=== PATIENT | male | born 1940 | race Caucasian/White ===

== ENCOUNTER → 2023-12-27 13:16 | Outpatient (REF) | payer MEDICARE, SELFPAY ==
[2023-12-27 14:03] LABS: % Basophils 0.6 % (0-2); % Eosinophils 1.7 % (0-6); % Immature Granulocytes 0.2 % (0-0.5); % Lymphocytes 23.9 % (20.5-51.1); % Monocytes 8.5 % (1.7-9.3); % Neutrophils 65.1 % (42.2-75.2); Absolute Eosinophils 0.1 10^3/uL (0-0.7); Absolute Lymphocytes 1.5 10^3/uL (1.2-3.4); Absolute Monocytes 0.5 10^3/uL (0.1-0.6); Absolute Neutrophils 4.1 10^3/uL (1.4-6.5); Hematocrit 38.7 % (39.0-52.0); Hemoglobin 12.6 g/dL (13.0-18.0); Mean Corp Hgb Conc. 32.6 g/dL (33.0-37.0); Mean Corpuscular Hgb 30.5 pg (27.0-31.0); Mean Corpuscular Volume 93.7 fL (80.0-94.0); Mean Platelet Volume 10.2 fL (7.4-10.4); Nucleated Red Blood Cells % 0 % (-); Platelet Count 176 10^3/uL (130-400); Red Blood Cell Count 4.13 10^6/uL (4.70-6.10); Red Cell Dist. Width 13.3 % (11.5-14.5); White Blood Cell Count 6.3 10^3/uL (4.8-10.8)
[2023-12-27 14:32] LABS: ALT (SGPT) 20 U/L (0-50); AST (SGOT) 27 U/L (17-59); Albumin 3.7 g/dl (3.5-5.0); Alkaline Phosphatase 75 U/L (38-126); Blood Urea Nitrogen 29 mg/dl (9-20); Calcium 9.4 mg/dl (8.4-10.2); Carbon Dioxide 27 mmol/L (22-30); Chloride 107 mmol/L (98-107); Glucose 76 mg/dl (70-99); Potassium 4.6 mmol/L (3.5-5.1); Sodium 140 mmol/L (135-145); Total Bilirubin 0.6 mg/dl (0.2-1.3); Total Protein 6.4 g/dl (6.3-8.2); eGFR 53.84
[2023-12-27 14:48] LABS: Vitamin D, 25-OH*** 37.9 ng/mL (30-80)
[2023-12-27 14:59] LABS: Erythrocyte Sed Rate 19 mm/hour (0-20)
== END ==
LOC: REG 13:16
PROVIDERS: ATTENDING PHYSICIAN Internal Medicine Rheumatology; FAMILY PHYSICIAN Internal Medicine
DX: E55.9 Vitamin D deficiency, unspecified (principal); M06.09 Rheumatoid arthritis without rheumatoid factor, multiple sites; Z79.899 Other long term (current) drug therapy
CPT/HCPCS: 36415; 80053; 82306; 85025; 85652; 86140

== ENCOUNTER → 2024-05-07 10:45 | Outpatient (REF) | payer MEDICARE, SELFPAY | LOC: RAD 10:45 | PROVIDERS: ATTENDING PHYSICIAN Surgery Vascular Surgery; FAMILY PHYSICIAN Nurse Practitioner Family | DX: R22.42 Localized swelling, mass and lump, left lower limb (principal) | CPT/HCPCS: 93970 ==

== ENCOUNTER → 2024-05-23 10:57 | Outpatient (REF) | payer MEDICARE, SELFPAY ==
[2024-05-23 12:19] LABS: % Basophils 0.8 % (0-2); % Eosinophils 1.7 % (0-6); % Immature Granulocytes 0.2 % (0-0.5); % Lymphocytes 23.7 % (20.5-51.1); % Monocytes 8.9 % (1.7-9.3); % Neutrophils 64.7 % (42.2-75.2); Absolute Eosinophils 0.1 10^3/uL (0-0.7); Absolute Lymphocytes 1.3 10^3/uL (1.2-3.4); Absolute Monocytes 0.5 10^3/uL (0.1-0.6); Absolute Neutrophils 3.4 10^3/uL (1.4-6.5); Hematocrit 38.2 % (39.0-52.0); Hemoglobin 12.7 g/dL (13.0-18.0); Mean Corp Hgb Conc. 33.2 g/dL (33.0-37.0); Mean Corpuscular Volume 90.1 fL (80.0-94.0); Mean Platelet Volume 10.5 fL (7.4-10.4); Nucleated Red Blood Cells % 0 % (-); Platelet Count 162 10^3/uL (130-400); Red Blood Cell Count 4.24 10^6/uL (4.70-6.10); Red Cell Dist. Width 12.8 % (11.5-14.5); White Blood Cell Count 5.3 10^3/uL (4.8-10.8)
[2024-05-23 12:35] LABS: Erythrocyte Sed Rate 24 mm/hour (0-20)
[2024-05-23 12:48] LABS: ALT (SGPT) 21 U/L (0-50); AST (SGOT) 33 U/L (17-59); Albumin 4.3 g/dl (3.5-5.0); Alkaline Phosphatase 87 U/L (38-126); Blood Urea Nitrogen 26 mg/dl (9-20); Calcium 9.8 mg/dl (8.4-10.2); Carbon Dioxide 24 mmol/L (22-30); Chloride 106 mmol/L (98-107); Glucose 82 mg/dl (70-99); HDL Cholesterol 70 mg/dl; LDL Cholesterol, Calculated 44 mg/dl; Potassium 5.5 mmol/L (3.5-5.1); Sodium 140 mmol/L (135-145); Total Bilirubin 0.8 mg/dl (0.2-1.3); Total Cholesterol 124 mg/dl (50-199); Total Protein 7.1 g/dl (6.3-8.2); Triglyceride 54 mg/dl (10-149); Very Low Density Lipoprotein 10 mg/dl (0-30); eGFR 49.25
[2024-05-23 12:53] LABS: C-Reactive Protein < 5.00 mg/L (0.0-10.00)
[2024-05-23 13:24] LABS: TSH Reflex To Free T4 1.51 uIU/ml (0.47-4.68)
[2024-05-23 18:38] LABS: tTG IgA Antibody 5.9 EU/ml (0-19)
[2024-05-24 05:28] LABS: IgA 351 mg/dl (70-400)
[2024-05-24 12:42] LABS: tTG IgG Antibody 18.7 EU/ml (0-19)
== END ==
LOC: REG 10:57
PROVIDERS: ATTENDING PHYSICIAN Nurse Practitioner Family; FAMILY PHYSICIAN Nurse Practitioner Family
DX: N18.2 Chronic kidney disease, stage 2 (mild) (principal); E78.2 Mixed hyperlipidemia; E66.3 Overweight; R19.7 Diarrhea, unspecified
CPT/HCPCS: 36415; 80053; 80061; 82784; 83516; 84443; 85025; 85652; 86140; 86231

== ENCOUNTER → 2024-05-25 13:14 | Outpatient (REF) | payer MEDICARE, SELFPAY | LOC: REG 13:14 | PROVIDERS: ATTENDING PHYSICIAN Nurse Practitioner Family; FAMILY PHYSICIAN Nurse Practitioner Family | DX: R19.7 Diarrhea, unspecified (principal) | CPT/HCPCS: 83993; 87045; 87046; 87324; 87427; 87449 ==

== ENCOUNTER → 2024-06-04 11:55 | Outpatient (REF) | payer MEDICARE, SELFPAY ==
[2024-06-04 12:48] LABS: % Basophils 0.6 % (0-2); % Immature Granulocytes 0.2 % (0-0.5); % Lymphocytes 23.9 % (20.5-51.1); % Neutrophils 65.3 % (42.2-75.2); Absolute Eosinophils 0.1 10^3/uL (0-0.7); Absolute Lymphocytes 1.2 10^3/uL (1.2-3.4); Absolute Monocytes 0.4 10^3/uL (0.1-0.6); Absolute Neutrophils 3.3 10^3/uL (1.4-6.5); Hematocrit 38.2 % (39.0-52.0); Hemoglobin 12.8 g/dL (13.0-18.0); Mean Corp Hgb Conc. 33.5 g/dL (33.0-37.0); Mean Corpuscular Hgb 30.3 pg (27.0-31.0); Mean Corpuscular Volume 90.5 fL (80.0-94.0); Mean Platelet Volume 10.3 fL (7.4-10.4); Nucleated Red Blood Cells % 0 % (-); Platelet Count 178 10^3/uL (130-400); Red Blood Cell Count 4.22 10^6/uL (4.70-6.10); Red Cell Dist. Width 13.2 % (11.5-14.5); White Blood Cell Count 5.1 10^3/uL (4.8-10.8)
[2024-06-04 13:20] LABS: Erythrocyte Sed Rate 19 mm/hour (0-20)
[2024-06-04 13:29] LABS: ALT (SGPT) 20 U/L (0-50); AST (SGOT) 31 U/L (17-59); Alkaline Phosphatase 77 U/L (38-126); Calcium 9.5 mg/dl (8.4-10.2); Carbon Dioxide 27 mmol/L (22-30); Chloride 106 mmol/L (98-107); Glucose 87 mg/dl (70-99); Potassium 4.6 mmol/L (3.5-5.1); Total Bilirubin 0.7 mg/dl (0.2-1.3); Total Protein 6.6 g/dl (6.3-8.2); eGFR 49.25
[2024-06-04 13:33] LABS: C-Reactive Protein < 5.00 mg/L (0.0-10.00)
[2024-06-04 13:34] LABS: Blood Urea Nitrogen 30 mg/dl (9-20); Sodium 140 mmol/L (135-145)
== END ==
LOC: REG 11:55
PROVIDERS: ATTENDING PHYSICIAN Internal Medicine Rheumatology; FAMILY PHYSICIAN Family Medicine
DX: M06.09 Rheumatoid arthritis without rheumatoid factor, multiple sites (principal); Z79.899 Other long term (current) drug therapy; E87.5 Hyperkalemia
CPT/HCPCS: 36415; 80053; 85025; 85652; 86140

== ENCOUNTER → 2024-06-14 11:55 | Outpatient (REF) | payer MEDICARE, SELFPAY | LOC: REG 11:55 | PROVIDERS: ATTENDING PHYSICIAN Nurse Practitioner Family; FAMILY PHYSICIAN Nurse Practitioner Family | DX: R63.4 Abnormal weight loss (principal); R19.7 Diarrhea, unspecified | CPT/HCPCS: 82653; 82710 ==

== ENCOUNTER → 2024-06-25 13:32 | Outpatient (REF) | payer MEDICARE, SELFPAY | LOC: REG 13:32 | PROVIDERS: ATTENDING PHYSICIAN Nurse Practitioner Family; FAMILY PHYSICIAN Nurse Practitioner Family | DX: R63.4 Abnormal weight loss (principal); R19.7 Diarrhea, unspecified | CPT/HCPCS: 36415; 82710 ==

== ENCOUNTER 2024-08-04 16:48 | Emergency (ER) | payer MEDICARE, SELFPAY ==
[2024-08-04 16:54] VITALS: BP 131/63
--- NOTE | 2024-08-04 17:34 | ED.GENMED ---
History of Present Illness
General
Chief Complaint: Rectal Bleeding
Time Seen by Provider: 08/04/24 17:33
History of Present Illness
History of Present Illness:
HPI: The patient presents with painless bright red blood per rectum. Onset today while standing in his shop. Had a lot of physical therapy earlier in the day. Has h/o external hemorrhoids. Is on fiber for constipation. No constipation. Last
colonoscopy 10yrs ago unremarkable. He takes aspirin due to known CAD.
EXAM:
GENERAL: Well appearing in no distress
HEENT: Moist oral mucosa
CARDIOVASCULAR: Murmur noted right upper sternal border, normal heart rate, regular rhythm, No chest wall tenderness
PULMONARY: No respiratory distress, breath sounds are clear and equal
ABDOMEN: Soft with no peritoneal signs, no tenderness, external hemorrhoid noted without active bleeding, no gross blood on digital rectal examination
NEUROLOGIC: Excellent strength all extremities, no coordination deficits
PSYCHIATRIC: Appropriate mental status, normal insight and judgement
EXTREMITIES: Nontender, no edema, moves all extremities equally
SKIN: No rash, no lesions
TIME OF INITIAL ENCOUNTER: 6 PM
NUMBER AND COMPLEXITY OF PROBLEMS ADDRESSED AT THE ENCOUNTER
� Chronic conditions affecting care: CAD on aspirin, aortic stenosis, PAD, has had RICK
� Acute Exacerbation and/or Progression of Chronic Illness: This is an acute problem
� Differential Diagnosis includes: External hemorrhoid, internal hemorrhoid, AVM, polyp, anal tear less likely given lack of pain, malignancy, diverticular bleeding
AMOUNT AND/OR COMPLEXITY OF DATA TO BE REVIEWED AND ANALYZED
� I performed an independent evaluation of and my interpretation is:
EKG:
CT:
X-rays:
Laboratory Studies: Hemoglobin is 12.3 which is just lightly lower than 12.8 when it was last checked, creatinine is 1.7 which is near or just slightly worse than prior
Other:
� Review of other/old records: I reviewed records, the patient had a coronary catheterization without intervention and medical management was recommended last year. He was admitted with RICK in 2020.
� Clinical information was obtained by an independent historian: None needed
� Prescriptions/Medications Considered but not given:
� Further testing considered but not performed:
RISK OF COMPLICATIONS AND/OR MORBIDITY OR MORTALITY OF PATIENT MANAGEMENT
� Social determinants of health affecting care: Lives at home
� Discussion with other providers: I discussed the case with Dr. Hernandez; I also sent message to GI front office to help arrange close outpatient follow-up
� Escalation of care including admission/observation vs risk of discharge considered: The patient has been observed for period of time while in the emergency department. The patient's hemoglobin is stable and he is
hemodynamically stable with no further bleeding episodes. I did talk to him about holding aspirin if he has another episode of bleeding. However at this time, given his known CAD, I feel it would be reasonable to continue aspirin.
Past History
Past History
ED Past Medical History: CAD, GERD, HTN, Hypercholesterolemia and Other (Peripheral vascular disease, diverticular disease, irritable bowel)
Social History
Tobacco: Former smoker
Alcohol: None
Drug: None
Personal:
Living: with family
Employment: Retired
Family History
Family History: Hypertension
Phy Exam
Physical Exam
Physical Exam:
See HPI
Course
Orders/Labs/Results
Orders:
Orders
08/04/24 18:07
Complete Blood Count/With Diff Urgent
Comprehensive Metabolic Panel Urgent
Abnormal Lab Results
08/04/24
18:07
RBC 4.08 L 10^6/uL
(4.70-6.10)
Hgb 12.3 L g/dL
(13.0-18.0)
Hct 36.3 L %
(39.0-52.0)
MPV 10.6 H fL
(7.4-10.4)
Monocytes % 9.5 H %
(1.7-9.3)
BUN 32 H mg/dl
(9-20)
Creatinine 1.7 H mg/dL
(0.7-1.3)
08/04/24 18:07
08/04/24 18:07
Vital Signs
Initial and Last Documented VS:
Initial Vital Signs
Temp Pulse Resp BP Pulse Ox
98.0 F 63 18 131/63 99
08/04/24 16:54 08/04/24 16:54 08/04/24 16:54 08/04/24 16:54 08/04/24 16:54
Last Documented Vital Signs
Temp Pulse Resp BP Pulse Ox
97.7 F 65 13 136/64 96
08/04/24 17:56 08/04/24 18:45 08/04/24 18:45 08/04/24 18:18 08/04/24 18:30
*Critical Care Note
Total Time (30-74mins, 75-104mins- exclusive of procedures): Not Applicable
ED Attending Note
ED Attending Note
Patient seen and examined by attending physician: Yes
I performed the substantive portion of visit, reviewed & personally made and approve the management plan that is documented in note by myself or FLAKO.: Yes
I performed a history and physical exam of patient and discussed management with resident, I reviewed resident's note and agree with documented findings and plan of care.: Yes
ED Attending Note:
I evaluated the patient at bedside with the resident.
-
Portions of this chart may have been created with voice recognition software.� Occasional wrong word or��sound alike� substitutions may have occurred due to the inherent limitations of voice recognition software.
Discharge Plan
Departure
Patient Disposition: Home (Routine Discharge)
Date of Disposition: 08/04/24
Time of Disposition: 19:08
Patient with high blood pressure during this ER visit?: Yes
Discharge Problem:
Acute GI bleeding
Instructions: Gastrointestinal Bleeding (DC)
Prescriptions:
No Action
aspirin 81 MG tablet,delayed release (DR/EC)
81 mg PO DAILY
hydroxychloroquine 200 MG tablet
400 mg PO DAILY
metoprolol succinate 25 mg Tablet Extended Release 24 Hr
25 mg PO DAILY
Glucosamine Chondroitin 550-30-1 mg Capsule
1 cap PO BID
Lions José Miguel tablet
2 tab PO DAILY
amlodipine 2.5 mg tablet
2.5 mg PO DAILY Qty: 90 5RF
atorvastatin 20 mg tablet
20 mg PO QPM Qty: 90 5RF
Referrals:
Mago Ortiz CRNP [Family Provider] -
Vero Hernandez, DO [Active] - Follow up in 2-3 days
Activity Restrictions/Additional Instructions:
Your hemoglobin today is 12.3 down slightly from 12.8 from May[address] I messaged Dr. Hernandez (GI). I did review your records and you did have a colonoscopy in [address] Zavala which showed diverticulosis. I am contacting their office to help
arrange close follow-up for you. The cause of your bleeding is unclear but may be recurrence of diverticulosis (less likely) or from internal hemorrhoids (more likely). Here if worse or any other concerns.
Interventions
Interventions:
*Risk Screen - Suicide Last Done: 08/04/24 16:54
*General Assessment Last Done: 08/04/24 16:54
*Neglect/Abuse Screening Last Done: 08/04/24 16:54
ED- Fall Risk Assessment Last Done: 08/04/24 18:19
*ED COVID-19 Vaccine History Last Done: 08/04/24 18:00
DF-Rzkwwq-Stbwojvhiz Assessment Last Done: 08/04/24 17:42
ED- Cardiac Assessment Last Done: 08/04/24 17:42
ED- Pulmonary Assessment Last Done: 08/04/24 17:42
Discharge Date and Time
Print Language: SAMMARINESE
[2024-08-04 17:56] VITALS: BP 128/52
[2024-08-04 18:01] VITALS: BMI 26.4
[2024-08-04 18:18] VITALS: BP 136/64
[2024-08-04 18:39] LABS: % Basophils 0.7 % (0-2); % Eosinophils 1.5 % (0-6); % Immature Granulocytes 0.2 % (0-0.5); % Lymphocytes 21.6 % (20.5-51.1); % Monocytes 9.5 % (1.7-9.3); % Neutrophils 66.5 % (42.2-75.2); Absolute Eosinophils 0.1 10^3/uL (0-0.7); Absolute Lymphocytes 1.3 10^3/uL (1.2-3.4); Absolute Monocytes 0.6 10^3/uL (0.1-0.6); Absolute Neutrophils 3.9 10^3/uL (1.4-6.5); Hematocrit 36.3 % (39.0-52.0); Hemoglobin 12.3 g/dL (13.0-18.0); Mean Corp Hgb Conc. 33.9 g/dL (33.0-37.0); Mean Corpuscular Hgb 30.1 pg (27.0-31.0); Mean Platelet Volume 10.6 fL (7.4-10.4); Nucleated Red Blood Cells % 0 % (-); Platelet Count 146 10^3/uL (130-400); Red Blood Cell Count 4.08 10^6/uL (4.70-6.10); Red Cell Dist. Width 13.5 % (11.5-14.5); White Blood Cell Count 5.9 10^3/uL (4.8-10.8)
[2024-08-04 18:53] LABS: ALT (SGPT) 26 U/L (0-50); AST (SGOT) 36 U/L (17-59); Albumin 4.2 g/dl (3.5-5.0); Alkaline Phosphatase 80 U/L (38-126); Blood Urea Nitrogen 32 mg/dl (9-20); Calcium 9.8 mg/dl (8.4-10.2); Carbon Dioxide 22 mmol/L (22-30); Chloride 106 mmol/L (98-107); Estimated Creatinine Clearance 31 ml/min; Glucose 79 mg/dl (70-99); Potassium 5.1 mmol/L (3.5-5.1); Sodium 141 mmol/L (135-145); Total Bilirubin 0.6 mg/dl (0.2-1.3); Total Protein 6.9 g/dl (6.3-8.2); eGFR 38.78
== END 2024-08-04 19:25 | disposition home or self-care (01) ==
LOC: EMR 16:48
PROVIDERS: EMERGENCY PHYSICIAN Emergency Medicine; FAMILY PHYSICIAN Nurse Practitioner Family
DX: K92.2 Gastrointestinal hemorrhage, unspecified (principal); K64.4 Residual hemorrhoidal skin tags; I25.10 Atherosclerotic heart disease of native coronary artery without angina pectoris; I35.0 Nonrheumatic aortic (valve) stenosis; I73.9 Peripheral vascular disease, unspecified; K21.9 Gastro-esophageal reflux disease without esophagitis; I10 Essential (primary) hypertension; E78.00 Pure hypercholesterolemia, unspecified; K57.90 Diverticulosis of intestine, part unspecified, without perforation or abscess without bleeding; K58.9 Irritable bowel syndrome, unspecified; Z79.82 Long term (current) use of aspirin; Z87.891 Personal history of nicotine dependence
CPT/HCPCS: 99283; 80053; 85025

== ENCOUNTER → 2024-08-17 15:54 | Outpatient (REF) | payer MEDICARE, SELFPAY | LOC: RCS 15:54 | PROVIDERS: ATTENDING PHYSICIAN Internal Medicine Cardiovascular Disease; FAMILY PHYSICIAN Nurse Practitioner Family | DX: I35.0 Nonrheumatic aortic (valve) stenosis (principal) | CPT/HCPCS: 93306 ==

== ENCOUNTER → 2024-09-03 14:04 | Outpatient (REF) | payer MEDICARE, SELFPAY ==
[2024-09-03 14:37] LABS: % Basophils 0.7 % (0-2); % Immature Granulocytes 0.2 % (0-0.5); % Lymphocytes 24.2 % (20.5-51.1); % Monocytes 9.8 % (1.7-9.3); % Neutrophils 63.1 % (42.2-75.2); Absolute Eosinophils 0.1 10^3/uL (0-0.7); Absolute Lymphocytes 1.4 10^3/uL (1.2-3.4); Absolute Monocytes 0.6 10^3/uL (0.1-0.6); Absolute Neutrophils 3.5 10^3/uL (1.4-6.5); Hematocrit 36.5 % (39.0-52.0); Hemoglobin 12.3 g/dL (13.0-18.0); Mean Corp Hgb Conc. 33.7 g/dL (33.0-37.0); Mean Corpuscular Hgb 30.4 pg (27.0-31.0); Mean Corpuscular Volume 90.1 fL (80.0-94.0); Mean Platelet Volume 10.1 fL (7.4-10.4); Nucleated Red Blood Cells % 0 % (-); Platelet Count 155 10^3/uL (130-400); Red Blood Cell Count 4.05 10^6/uL (4.70-6.10); Red Cell Dist. Width 13.2 % (11.5-14.5); White Blood Cell Count 5.6 10^3/uL (4.8-10.8)
[2024-09-03 14:54] LABS: ALT (SGPT) 26 U/L (0-50); AST (SGOT) 36 U/L (17-59); Alkaline Phosphatase 68 U/L (38-126); Blood Urea Nitrogen 30 mg/dl (9-20); Carbon Dioxide 25 mmol/L (22-30); Chloride 106 mmol/L (98-107); Glucose 81 mg/dl (70-99); Potassium 4.3 mmol/L (3.5-5.1); Sodium 142 mmol/L (135-145); Total Bilirubin 0.3 mg/dl (0.2-1.3); Total Protein 6.7 g/dl (6.3-8.2); eGFR 48.95
== END ==
LOC: REG 14:04
PROVIDERS: ATTENDING PHYSICIAN Internal Medicine Interventional Cardiology; FAMILY PHYSICIAN Nurse Practitioner Family; OTHER PHYSICIAN Internal Medicine Rheumatology; REFERRING PHYSICIAN Internal Medicine Cardiovascular Disease
DX: I10 Essential (primary) hypertension (principal); N18.2 Chronic kidney disease, stage 2 (mild); I35.0 Nonrheumatic aortic (valve) stenosis; I25.10 Atherosclerotic heart disease of native coronary artery without angina pectoris
CPT/HCPCS: 36415; 80053; 85025

== ENCOUNTER 2024-09-13 08:50 | Day surgery (SDC) | payer MEDICARE, SELFPAY ==
[2024-09-13] VITALS (22 sets, daily range): BP systolic 113–161; BP diastolic 66–133; BMI 26.2
--- NOTE | 2024-09-13 09:01 | CONSULT.STRU ---
Consultation
-
Date/Time Consultation Requested: 09/13/2024
Date/Time Consultation Performed: 09/13/2024
Requesting Provider: Annita Villalpando MD
Performing Provider: OTF Tom
Reason for Consultation: / TAVR
Patient History
Physicians
Family Physician: OTF Frederick
Outpatient Credit Collector: Dany Vásquez MD
Primary Credit Collector: aDny Vásquez MD
History of Present Illness
MR. Medina is a very pleasant 84 yom that presents with symptomatic aortic stenosis associated with PRUITT and decrease in exercise tolerance. Echocardiogram from 08/17/2024 is notable for EF 50-55%, AV P/M 45/23, DANA 0.8, DI 0.2, no AI, MAC with mild
Discussed the pathophysiology and treatment options of including SAVR and TAVR. Explained the evaluation process comprising of CT scan, CT surgical consult, dental clearance, and a heart team discussion. TAVR booklet, contact information,
prescriptions, and appointments given to patient. Allowed for and answered questions at bedside.
Past Medical History
Past Medical History: CAD, GERD, HTN, Valvular Disease (aortic stenosis) and Other (cardiomyopathy, mixed hyperlipidemia, CKD 2, diverticulosis, (R) shoulder supraspinatus tear, shingles, DJD, RA, shoulder impingement syndrome)
Past Surgical History
Past Surgical History: Orthopedic (cervical surgery, lumbar surgery, (R) shoulder arthroscopy, subcromial decompression, distal clavicle excision, rotator cuff repair, cataract extractions, sinus surgery)
Dental History
upper and lower dentures
Family History
Mother: Cause of (lung cancer)
Father: at Age
Social History
Alcohol: Occasional (1-2 glasses of wine 4-5x's week)
Drug: None
Tobacco: Former Smoker
Personal:
Living: Alone
Employment: Retired (construction)
Allergies
Allergy/AdvReac Type Severity Reaction Status Date / Time
No Known Allergies Allergy Verified 08/04/24 16:54
Home Medications
�Medication �Instructions �Recorded �Confirmed �Type
aspirin 81 mg tablet,delayed 81 mg PO DAILY Blood clot 09/18/21 04/28/23 History
release prevention/tx
hydroxychloroquine 200 mg tablet 400 mg PO DAILY Autoimmune disorder 09/18/21 04/28/23 History
Lions José Miguel 2 tab PO DAILY 04/28/23 04/28/23 History
amlodipine 2.5 mg tablet 2.5 mg PO DAILY #90 tabs 04/28/23 Rx
atorvastatin 20 mg tablet 20 mg PO QPM #90 tabs 04/28/23 Rx
glucosamine sulf dipot 1 cap PO BID 04/28/23 04/28/23 History
chlr,msm,chond 550 mg-C 30 mg-alphonse
1 mg capsule (Glucosamine
Chondroitin)
metoprolol succinate 25 mg 25 mg PO DAILY 04/28/23 04/28/23 History
tablet,extended release 24 hr
STS%
STS %: 2.9
Review of Systems
-
History Source: Patient
General: Reports Fatigue
HEENT: Reports No Symptoms
Respiratory: Reports PRUITT
Cardiac: Reports No Symptoms
Abdomen/GI: Reports No Symptoms
: Reports No Symptoms
Musculoskeletal: Reports No Symptoms
Skin: Reports No Symptoms
Neurological: Reports No Symptoms
Vascular: Reports No Symptoms
Physical Exam
Labs
09/03/2024:
HH: 12.3/36.5
PLT: 155K
BUN/Creat: 30/1.4
GFR: 48.95
Diagnostic Studies
ECHOCARDIOGRAM 08/17/2024:
CONCLUSIONS
Normal left ventricular size with normal LV systolic function.
Moderate concentric left ventricular hypertrophy, 1.3 cm
Left ventricular ejection fraction estimated by Winchester's biplane method 55%
Enlarged right ventricle with overall preserved RV systolic function.
Biatrial dilatation
Thickened mitral valve leaflets with mitral annular calcification. Mild, early
systolic mitral regurgitation
Severe aortic stenosis with no significant aortic regurgitation. Peak aortic
valve velocity 3.37 m/s. Peak/mean gradients across the valve are 45/23 mmHg.
Using an LVOT of 2.3 cm the calculated valve area is 0.8 cm2. Dimensionless
index 0.2. Stroke-volume index 28 cc/m2.
Aortic root and proximal ascending aorta normal in size.
No pericardial effusion
Compared to prior study dated 08/08/2023, LV ejection fraction was previously
visually estimated 50-55%. Aortic stenosis was graded moderate with peak/mean
transaortic gradients 33/17 mmHg.
CARDIAC CATHETERIZATION 09/13/2024:
CONCLUSIONS
1. Stable coronary artery disease with tandem 50 to 60% stenoses in mid LAD distal to prior stent.
2. Stable 70% stenosis in the posterolateral branch.
3. Normal to mildly elevated right and left-sided filling pressures with reduced cardiac output in the setting of elevated systemic vascular resistance.
RECOMMENDATIONS
1. Proceed with TAVR workup including a CT of chest, abdomen and pelvis per TAVR protocol and CT surgery consult with plan for discussion of case at our neck structural meeting.
Clinical Summary
Planned Surgery: Isolated AVR, Elective, First cardiovascular surgery
Demographics: 84 year old, White, male, 82kg, 183cm, BMI: 24.5 kg/m�
Insurance/Payor: Medicare
Lab Values: Creatinine: 1.4 mg/dL, Hematocrit: 36.5%, WBC Count: 5.6 10�/�L, Platelet Count: 715354 cells/�L
PreOp Medications: DENITA Inhibitors/ARBs <=48 hrs
Substance Abuse: Former smoker, Alcohol use: 2-7 drinks/week
Risk Factors / Comorbidities: Hypertension
Cardiac Status: Chronic heart failure, NYHA Class II, Ejection Fraction = 50%
Coronary Artery Disease: No coronary symptoms
Valve Disease: Aortic Stenosis, Mild MR, Trivial/Trace TR
Exam
General: Well Developed, Well Nourished, No Apparent Distress and Comfortable
HEENT: Moist Mucous Membranes
Neck: Trachea Midline
Respiratory: Clear
Cardiac: Regular Rhythm and Murmur (III/ ADIS)
GI: Soft and Non Tender
Rectal: Deferred by Provider
Skin: Warm and Dry
Neuro: Awake, Alert, Oriented and AO x 3
Psych: Calm
Assessment / Plan
-
Aortic Stenosis
Continue TAVR evaluation
Trend creatinine (Rx given)
TAVR CT (chest 09/25) staged d/t RI
CT surgical consult (MPT 09/25)
Frailty testing and [id number] at consult
Dental clearance
Continue aspirin
Heart team discussion
Data Reviewed
-
EKG: Tracing Personally Visualized and interpreted (NSR)
Anesthesiology Technologist: Report Reviewed by me and Discussed with Physician
Echo: Report Reviewed by me and Discussed with Physician
Labs: Labs Reviewed by me
Old Records: Reviewed (Jovita Vásquez and Kwasi's office notes)
Total Time Spent with Patient (in minutes): 45
[2024-09-13] MEDS: LOW STRENGTH ASPIRIN 81 MG PO (09:42)
--- NOTE | 2024-09-13 11:55 | ITS.CL.CATH ---
Web Programmer - Catheterization
Cardiac Catheterization
Procedure Report:
LEFT AND RIGHT HEART CATHETERIZATION
Date of Procedure: September 13, 2024
Referring: Annita Villalpando MD, [facility], [facility]
PROCEDURES:
1. Left heart catheterization, coronary angiogram.
2. Right heart catheterization.
3. Ultrasound-guided access
INDICATION: Patient is a 84-year-old gentleman with past medical history of hypertension, hyperlipidemia, rheumatoid arthritis, coronary artery disease with remote stenting of the mid LAD with a 3.0 x 23 mm Cypher stent that was postdilated to high
pressures with a 3.5 mm noncompliant balloon in 2006, repeat coronary angiography in 2020 was notable for a distally occluded RCA treated medically, repeat heart catheterization in March 2023 with IFR negative mid LAD 2 serial 50 to 60% stenoses with
IFR of 0.94 with progressive dyspnea on exertion with most recent echocardiogram from July 2024 showing moderate LVH, LVEF of 55%, biatrial dilatation, possibly severe aortic stenosis which is low-flow low gradient with peak and mean
transaortic gradients of 45 and 23 mmHg, calculated aortic valve area of 0.8 cm�, dimensionless index of 0.2, stroke-volume index of 28 cc/m� now being referred for a left and right heart catheterization.
ACCESS: Right common femoral artery, 6 Croatian sheath. Bilateral radial pulses were good however fingers were cyanotic and therefore we avoided radial access
HEMODYNAMICS : (mmHg)
RA (m) : 8
RV (s/d,m) : 42/1, 15
PA (s/d, m) : 46/11, 22
PCWP (m) : 12
PA saturation: 64.5% on room air
AO saturation: 98.7% on room air
RA saturation: 68.4% on room air
Cardiac Output : 3.81 L/min by Rkystle calculation
Cardiac Index : 1.93 L/min/m-2 by Krystle calculation
Systemic vascular resistance: 2246 dsc^(-5)
Pulmonary vascular resistance: 2.62 [place] unit
Heart rate: 53 bpm
AO (s/d) : 154/67
LV (s/d) : 196/4
LVEDP : 12
Invasive mean transaortic gradient of 39 mmHg, aortic valve area is in the severe range at 0.68 cm�
CORONARY FINDINGS
DOMINANCE: Right
LEFT MAIN: The left main artery is a medium to large caliber which gives rise to the left anterior descending artery and the left circumflex artery. There is minimal luminal irregularities.
LEFT ANTERIOR DESCENDING: The LAD arises normally from the left main and runs in the anterior interventricular groove, giving rise to multiple small to medium caliber diagonal branches. The stent in the mid LAD remains widely patent with only minor
distal in-stent restenosis. The mid LAD beyond the stent has tandem angiographically stable 50-60% stenoses with luminal irregularities noted throughout the distal LAD as it approaches and wraps around the apex.
CIRCUMFLEX: The circumflex is a medium caliber, non-dominant vessel which gives rise to 1 high rising obtuse marginal branch and a small to medium caliber OM 2.. The mid circumflex has minor luminal irregularities. OM 2 has a 40% mid narrowing.
The AV continuation of the circumflex supplies an angiographically stable 70% stenosis in a posterolateral branch.
RIGHT CORONARY ARTERY: The right coronary artery is a small dominant vessel. The distal right coronary artery is occluded.
SEDATION: 67 minutes of procedural sedation was utilized. An independent medical claims representative was present to assist with and help manage the patient's level of consciousness and physiologic status.
RADIATION SUMMARY: Fluoro Time (min): 10.3, Dose (mGy): 275.02, DAP (Gy.cm2) : 26.68
Closure Device: Manual pressure was held over both the right brachial venous access site and the right common femoral arterial access site with successful hemostasis.
CONCLUSIONS
1. Stable coronary artery disease with tandem 50 to 60% stenoses in mid LAD distal to prior stent.
2. Stable 70% stenosis in the posterolateral branch.
3. Normal to mildly elevated right and left-sided filling pressures with reduced cardiac output in the setting of elevated systemic vascular resistance.
RECOMMENDATIONS
1. Proceed with TAVR workup including a CT of chest, abdomen and pelvis per TAVR protocol and CT surgery consult with plan for discussion of case at our neck structural meeting.
Copy to: Stanislaw Vásquez
Annita Villalpando MD, FACC, [facility]
[2024-09-13 14:16] LABS: ACT-LR - POC 174 Seconds (116-155)
[2024-09-13 23:09] LABS: ACT-LR - POC 213 Seconds (116-155)
== END 2024-09-13 17:47 | disposition home or self-care (01) ==
LOC: CATH 08:50
PROVIDERS: ATTENDING PHYSICIAN Internal Medicine Interventional Cardiology; FAMILY PHYSICIAN Nurse Practitioner Family
DX: I25.10 Atherosclerotic heart disease of native coronary artery without angina pectoris (principal); M06.9 Rheumatoid arthritis, unspecified; E78.2 Mixed hyperlipidemia; I13.0 Hypertensive heart and chronic kidney disease with heart failure and stage 1 through stage 4 chronic kidney disease, or unspecified chronic kidney disease; Z95.5 Presence of coronary angioplasty implant and graft; R06.09 Other forms of dyspnea; I08.0 Rheumatic disorders of both mitral and aortic valves; M75.41 Impingement syndrome of right shoulder; I42.8 Other cardiomyopathies; Z80.1 Family history of malignant neoplasm of trachea, bronchus and lung; Z87.891 Personal history of nicotine dependence
CPT/HCPCS: 99152; 99153; 85347; 93460; C1769; C1894; Q9967

== ENCOUNTER → 2024-09-20 10:08 | Outpatient (REF) | payer MEDICARE, SELFPAY ==
[2024-09-20 11:53] LABS: Blood Urea Nitrogen 33 mg/dl (9-20); Calcium 9.4 mg/dl (8.4-10.2); Carbon Dioxide 27 mmol/L (22-30); Chloride 104 mmol/L (98-107); Glucose 101 mg/dl (70-99); Potassium 4.5 mmol/L (3.5-5.1); Sodium 141 mmol/L (135-145); eGFR 45.06
== END ==
LOC: REG 10:08
PROVIDERS: ATTENDING PHYSICIAN Nurse Practitioner Acute Care; FAMILY PHYSICIAN Nurse Practitioner Family
DX: I35.0 Nonrheumatic aortic (valve) stenosis (principal)
CPT/HCPCS: 36415; 80048

== ENCOUNTER 2024-09-26 22:46 | Inpatient (IN) | payer MEDICARE, SELFPAY ==
[2024-09-26] VITALS (7 sets, daily range): BP systolic 104–153; BP diastolic 59–80; BMI 26.3
--- NOTE | 2024-09-26 21:02 | ED.GENMED ---
History of Present Illness
General
Chief Complaint: Abnormal Lab Value
Source: patient and records
Time Seen by Provider: 09/26/24 20:49
History of Present Illness
History of Present Illness:
84-year-old male who reports progressive dyspnea on exertion over the last 6 months or so, currently a consideration for TAVR and in that evaluation had a outpatient CT done yesterday. Report was given today which is consistent with bilateral PE.
He denies new dyspnea, dyspnea at rash, leg swelling, recent immobilization, recent trauma, chest pain or pressure, dizziness, hemoptysis, bleeding, fever, chills, or other complaints.
Past History
Past History
ED Past Medical History: CAD, GERD, HTN, Hypercholesterolemia and Other (Peripheral vascular disease, diverticular disease, irritable bowel)
Social History
Tobacco: Former smoker
Alcohol: Occasional
Drug: None
Personal:
Living: alone
Employment: Retired
Family History
Family History: Hypertension
Phy Exam
Physical Exam
Physical Exam:
GENERAL: Alert , in no apparent distress
EYE: pupils equal and reactive
NECK: Supple, no significant adenopathy.
ENT: o/p clr, mmm.
CARDIAC: Regular rate and rhythm, systolic murmur noted.
LUNGS: Clear breath sounds bilaterally, no acute respiratory distress, no wheezes/rales/rhonchi
ABDOMEN: Soft, without focal tenderness, no r/g, no cvat
NEUROLOGICAL: Alert and oriented, no focal neuro deficits
SKIN: Warm and dry, skin intact.
MUSCULOSKELETAL: Trace bilateral lower extremity edema, well perfused.
PSYCH: Normal and appropriate interaction.
Scores
PE Low Risk Score
Hemodynamically unstable?: No
Thrombolysis or embolectomy needed?: No
Active bleeding or high risk for bleeding?: No
>24hrs on supplemental O2 required to maintain SaO2 >90%?: No
PE diagnosed while on anticoagulation?: No
Severe pain needing IV medication required for >24 hours?: No
Medical or social reason for admission >24 hours?: No
Severe liver impairment?: No
?: No
Documented hx of heparin-induced thrombocytopenia (HIT)?: No
High risk features on CT (or pulmonary angiogram/MRA)(confirm with echo if features seen)?: No
High risk features on echo, if performed?: No
High risk features on laboratory testing?: No
High risk features on lower extremity US, if performed?: No
High risk features on ECG (confirm with echo if features seen)?: No
Course
Orders/Labs/Results
Orders:
Orders
09/26/24 20:29
ECG [Electrocardiogram (*1)] Urgent
Reason for Study: QTc Monitoring
EKG- Treatment ONCE
09/26/24 21:06
Cardiac Monitoring- Treatment ONCE
Heparin 6,500 units IV NOW STA
Pharmacy Request to Place See Dose Instructions PO NOW STA
Discontinue all Active Warfarin orders?: Yes
Nursing to Place Non Medication Order As Directed
Physician Order: PTT 6 hours after initial start of Heparin infusion
Above order entered?: Yes
09/26/24 21:11
NT-proBNP Urgent
Troponin I Urgent
09/26/24 21:15
Heparin 94590 Units/250 ml 25,000 units in 250 ml IV PER PROTOCOL
Weight to be used for heparin protocol in kilograms (kg):: 80.8
Protocol:: DVT/PE
PTT Goal Range to be used:: PTT 73 to 111 seconds
Order type:: Initial
INITIAL Infusion Dose (UNITS/KG/hr) & then follow protocol:: 18 units/kg/hr
Infusion Dose in UNITS/hr & then follow protocol (UNITS/hr):: 1,500
INFUSION RATE in mL/hr & then follow protocol (mL/hr):: 15
For DVT/PE algorithm, re-bolus for low PTT?: Yes
PTT less than or equal to 64 seconds:: Re-bolus 80 units/kg (max 10,000units). Increase by 300 units/hr
(+ 3mL/hr)
PTT 64.1 to 72.9 seconds:: Re-bolus 40 units/kg (max 5,000 units). Increase by 200 units/hr
(+ 2mL/hr)
PTT 73 to 111 seconds:: Target Range. No change in rate.
PTT 111.1 to 130.9 seconds:: Decrease rate by 200 units/hr (- 2 mL/hr)
PTT 131 to 199.9 seconds:: HOLD for 1 hr. Then decrease by 200 units/hr (- 2mL/hr)
PTT greater than or equal to 200 seconds:: HOLD for 2 hrs & Notify Provider. Then decrease by 300 units/hr
(- 3mL/hr)
Lab follow-up:: Each change, PTT q6h until 2 consecutive are therapeutic. Then
PTT daily.
09/26/24 21:46
Complete Blood Count/No Diff Urgent
Protime/PTT Urgent
09/26/24 21:50
Comprehensive Metabolic Panel Urgent
09/26/24 21:57
Heparin 6,500 units IV NOW STA
Nursing to Place Non Medication Order As Directed
Physician Order: PTT 6 hours after initial start of Heparin infusion
Above order entered?: Yes
09/26/24 22:[address] See Dose Instructions IV DIRECTED
09/26/24 22:19
Gabapentin [Neurontin] 300 mg PO DAILYPRN PRN
09/26/24 22:20
Admit/Transfer Patient As Directed
Co-Sign Provider:
Level of Care: Inpatient admission
Assign to:: IMU- Intermediate Care
Physician / Group: hospitalist
Diagnosis: bilateral PE
Reason for Hospitalization: bilateral pe
Expected length of stay greater than two midnights?: Yes
ELOS- Estimated Length of Stay in days: 2
I certify the patient meets the requirements for IP care: Yes
PRN Pain Medication Management As Directed
May give lesser potent ordered pain med per pt: Yes
preference::
Protocol:: Medication orders for pain may be administered in a
manner that supports deferring to patient preference
when the pt is:
- Requesting an ordered lesser potent pain medication.
Least to most potent pain medications are defined
as: acetaminophen < NSAID < tramadol < opioids
(morphine, oxycodone, hydromorphone).
- Requesting a lesser dose of the same medication IF
ORDERED.
- Requesting a less intrusive route of administration
if both routes are prescribed by the provider (PO <
IV).
09/26/24 22:21
Code Status As Directed
Resuscitation Status: Full Code
09/26/24 22:45
Aspirin Chewable [Low Strength Aspirin] 324 mg PO NOW STA
09/27/24 01:01
Acetaminophen [Tylenol] 650 mg PO Q4HPRN PRN
Ondansetron Injectable [Zofran] 4 mg IV Q6HPRN PRN
09/27/24 01:01
Echo 2D MMode Color/Doppler Routine
Reason for Study: pulmonary embolism
CARDIOLOGY CONSULT Routine
Consulting Provider: Julia Vásquez
Was physician already notified: No
Reason for consult: NSTEMI, bilateral PE
Consult Notification Routine
Specialty to Notify: Cardiology
Date consulting provider notified: 09/27/24
Time consulting provider notified: 06:41
Notified:: Provider
PULMONARY CONSULT Routine
Consulting Provider: Amy Sutton
Was physician already notified: Yes
Reason for consult: bilateral PE, trop 0.1
Activity As Directed
Activity Level: With Assistance
Bladder Scan As Directed
Follow Bladder Retention/Intermittent Cath Algorithm?: Yes
Frequency: Per Retention Algorithm
Comment: as per intermittent urinary catheter algorithm
Bladder Scan As Directed
Follow Bladder Retention/Intermittent Cath Algorithm?: Yes
PRN if no void in __ hours: 6
Frequency: Per Retention Algorithm
If Bladder Scan Result >: 400
then:: Straight cath
Intake/ Output As Directed
Frequency: Per unit guidelines
Straight Cath As Directed
Frequency: Per Retention Algorithm
Additional Instructions: as per intermittent urinary catheter algorithm
Straight Cath As Directed
Frequency: Per Retention Algorithm
Additional Instructions: straight cath as needed per acute urinary retention algorithm for 24 hrs
Additional Instructions: for bladder scan greater than 400 mL
Vital Signs As Directed
Frequency: Per unit guidelines
Pulse Ox/cont/shift [RESP] Routine
Quantity: 1
Special Instructions: check O2 Sat Q8 hours and at each change in oxygen liter flow and FiO2
09/27/24 06:23
Basic Metabolic Panel IN AM
Glycohemoglobin (HgbA1c) IN AM
09/27/24 08:00
Amlodipine [Norvasc] 2.5 mg PO DAILY
Docusate Sodium [Colace] 100 mg PO BID
Hydroxychloroquine [Plaquenil] 400 mg PO DAILY
Pantoprazole [Protonix] 40 mg PO DAILY
09/27/24 Dinner
Regular
At Your Request: Full Participation
Does patient need a safe tray?: No
09/27/24 22:00
Atorvastatin [Lipitor] 20 mg PO HS
09/28/24 11:00
DC Protocol for Telemetry ONCE
Abnormal Lab Results
09/26/24 09/26/24 09/26/24
21:11 21:46 21:50
RBC 3.75 L 10^6/uL
(4.70-6.10)
Hgb 11.4 L g/dL
(13.0-18.0)
Hct 32.9 L %
(39.0-52.0)
PT 15.9 H Sec
(11.4-14.6)
BUN 32 H mg/dl
(9-20)
Creatinine 1.5 H mg/dL
(0.7-1.3)
Troponin I 0.107 H* ng/ml
09/26/24 21:46
09/26/24 21:50
Vital Signs
Initial and Last Documented VS:
Initial Vital Signs
Temp Pulse Resp BP Pulse Ox
99.2 F 92 19 125/70 100
09/26/24 20:26 09/26/24 20:26 09/26/24 20:26 09/26/24 20:26 09/26/24 20:26
Last Documented Vital Signs
Temp Pulse Resp BP Pulse Ox
98.1 F 67 18 119/68 97
09/28/24 11:16 09/28/24 11:16 09/28/24 11:16 09/28/24 11:16 09/28/24 11:16
*Critical Care Note
Total Time (30-74mins, 75-104mins- exclusive of procedures): Not Applicable
Update Note
Update Note:
Patient presents to the Emergency Department with
Number and Complexity of Problems Addressed at the Encounter
� Chronic conditions affecting care:
� Acute Exacerbation and/or Progression of Chronic Illness:
� Differential Diagnosis includes:
Amount and/or Complexity of Data to be Reviewed and Analyzed
� I performed an independent evaluation of and my interpretation is:
EKG:
CT: CT report reviewedMild bilateral pulmonary thromboembolus with small filling defects in the left lower lobe segmental and subsegmental pulmonary arteries and the right lower lobe subsegmental pulmonary arteries.
2. Mild centrilobular emphysema.
3. Bilateral pleural plaques most in keeping with previous asbestos exposure.
4. Moderate coronary artery calcifications.
5. Moderate to severe disc valve calcifications.
Xrays:
Laboratory Studies:
Other:
� Review of other/old records reveals: Patient had an echo August 21 showing moderate LVH, EF 55% possibly severe AAS. Catheterization earlier this month shows stable CAD with tandem to 60% stenosis in mid LAD
� Clinical information was obtained by an independent historian:
� Prescriptions/Medications Considered but not given:
� Further testing considered but not performed: 9:13 PM pulse ox 100%, heart rate normal, patient watching the [employer] extremely comfortable without any symptoms. In fact, he was surprised that he was instructed to come
here and states he was at home drinking a glass of wine and watching the [employer] when this all was communicated to him that he needed to be in the emergency department. Workup pending however patient may be a candidate for a 'low risk' PE
discharge pathway. He is well-connected with his physicians who alerted us of his arrival, has access to meds, etc.
Risk of Complications and/or Morbidity or Mortality of Patient Management
� Social determinants of health affecting care:
� Discussion with other providers (PCP, Hospitalists, Consultants, etc):
� Escalation of care including admission/observation vs risk of discharge considered:Trop and bnp elevated, pt not a candidat efor d/c from ED, heparn gtt ordered, and hospitalist notified. Reassessment, pt happy, pleasant, asx,
watching tv. I did text pulmon (Archarya) to confirm not a lytic candidate, vitals not c/w concern on reassessment.
ED Attending Note
-
Portions of this chart may have been created with voice recognition software.� Occasional wrong word or��sound alike� substitutions may have occurred due to the inherent limitations of voice recognition software.
Discharge Plan
Departure
Patient Disposition: Admit
Date of Disposition: 09/26/24
Time of Disposition: 22:13
Admit to: Telemetry
Presentation/result/management discussed w/ accepting MD/DO: Hospitalist
Condition: Fair
Discharge Problem:
Pulmonary embolism
Interventions
Interventions:
*Risk Screen - Suicide Last Done: 09/26/24 20:26
*General Assessment Last Done: 09/26/24 21:01
*Neglect/Abuse Screening Last Done: 09/26/24 20:26
ED- Fall Risk Assessment Last Done: 09/26/24 21:01
*ED COVID-19 Vaccine History Last Done: 09/26/24 21:01
*Nursing Disposition Last Done: 09/27/24 00:48
Discharge Date and Time
Discharge Date/Time: 09/27/24 00:49
[2024-09-26 21:56] LABS: NT-proBNP 1440 pg/ml; Troponin I 0.107 ng/ml
[2024-09-26 22:01] LABS: Hematocrit 32.9 % (39.0-52.0); Hemoglobin 11.4 g/dL (13.0-18.0); Mean Corp Hgb Conc. 34.7 g/dL (33.0-37.0); Mean Corpuscular Hgb 30.4 pg (27.0-31.0); Mean Corpuscular Volume 87.7 fL (80.0-94.0); Mean Platelet Volume 10.1 fL (7.4-10.4); Platelet Count 158 10^3/uL (130-400); Red Blood Cell Count 3.75 10^6/uL (4.70-6.10); Red Cell Dist. Width 13.3 % (11.5-14.5)
[2024-09-26 22:11] LABS: INR 1.27; PT 15.9 Sec (11.4-14.6)
[2024-09-26 22:19] LABS: ALT (SGPT) 25 U/L (0-50); AST (SGOT) 37 U/L (17-59); Albumin 3.8 g/dl (3.5-5.0); Alkaline Phosphatase 65 U/L (38-126); Blood Urea Nitrogen 32 mg/dl (9-20); Calcium 9.2 mg/dl (8.4-10.2); Carbon Dioxide 24 mmol/L (22-30); Chloride 107 mmol/L (98-107); Estimated Creatinine Clearance 35 ml/min; Glucose 84 mg/dl (70-99); Potassium 3.9 mmol/L (3.5-5.1); Sodium 141 mmol/L (135-145); Total Bilirubin 0.3 mg/dl (0.2-1.3); Total Protein 6.4 g/dl (6.3-8.2); eGFR 45.06
--- NOTE | 2024-09-26 22:40 | HPS.HSE ---
Family Physician
-
Family Physician: OTF Frederick
Chief Complaint
-
Incidental finding of pulmonary embolism
History of Present Illness
Is an 84-year-old male with past medical history of hypertension, rate, aortic stenosis, CAD status post stenting in the remote past who presents to the emergency department after outpatient CT coronary angiogram shows small bilateral pulmonary
emboli.
The patient is undergoing workup for a TAVR. He has aortic stenosis with surgical valve area and a gradient of 28/15. He reports that he has been having dyspnea on exertion and shortness of breath for a few months now which prompted the workup
that eventually led to the finding of the CVA aortic stenosis. He denied having any chest pain. He denies any lightheadedness or dizziness. He denies any lower extremity swelling. He denies any calf tenderness or pain in his thighs. He denies
any groin pain. He denies any lower extremity edema. The patient has put off any recent travels and has not had any prolonged immobilization. He denies any recent COVID infection. He has no recent trauma. Workup for TAVR included a pulmonary
cath which showed no critical stenosis. He was to proceed to TAVR. He had a coronary angiogram today which showed bilateral PE prompted evaluation in the emergency department.
In the ED was afebrile, hemodynamically stable and in no acute distress. ECG showed normal sinus rhythm at a rate of 73 without any ischemic changes and unchanged from prior. His troponin was slightly elevated at 0.1 and BNP was elevated at 1400.
CBC is unchanged from prior without any acute abnormalities. Chemistries show baseline creatinine of 1.5 and BUN in the 30s which is unchanged from prior. No other abnormalities noted.
Recent cath summary 09/13:
1. Stable coronary artery disease with tandem 50 to 60% stenoses in mid LAD distal to prior stent.
2. Stable 70% stenosis in the posterolateral branch.
3. Normal to mildly elevated right and left-sided filling pressures with reduced cardiac output in the setting of elevated systemic vascular resistance.
Medical History
Past Medical History
Past Medical History: Reports CAD (Status post remote stenting), HTN and Valvular Disease (Aortic stenosis, pending TAVR)
Additional Past Medical History:
Rheumatoid arthritis
CKD stage III
Past Surgical History: Reports None
Social History
Tobacco: Former Smoker
Alcohol: None
Drug: None
Personal:
Living: With Family
Employment: Employed
Family History
Family History: Not pertinent
Allergies / Home Medications
Allergies reflects when Allergies were last updated in [facility].
Home Medications with original date entered in [facility]
Allergy/Medication List:
Allergies
Allergy/AdvReac Type Severity Reaction Status Date / Time
No Known Allergies Allergy Verified 09/26/24 20:26
Home Medications
aspirin 81 mg tablet,delayed release 81 mg PO DAILY Blood clot prevention/tx 09/18/21
hydroxychloroquine 200 mg tablet 400 mg PO DAILY Autoimmune disorder 09/18/21
glucosamine sulf dipot chlr,msm,chond 550 mg-C 30 mg-alphonse 1 mg capsule (Glucosamine Chondroitin) 1 cap PO BID 04/28/23
amlodipine 2.5 mg tablet 2.5 mg PO DAILY #90 tabs 09/13/24
atorvastatin 20 mg tablet 20 mg PO HS 09/26/24
gabapentin 300 mg capsule 300 mg PO DAILYPRN PRN moderate pain 09/26/24
therapeutic multivitamin 1 tab PO DAILY 09/26/24
Review of Systems
-
History Source: Patient
Constitutional: Reports No Symptoms
EENT: Reports No Symptoms
Respiratory: Reports No Symptoms
Cardiac: Reports No Symptoms
Abdomen/GI: Reports No Symptoms
: Reports No Symptoms
Musculoskeletal: Reports No Symptoms
Skin: Reports No Symptoms
Neurological: Reports No Symptoms
Endocrine: Reports No Symptoms
Hematologic/Lymphatic: Reports No Symptoms
Psych: Reports No Symptoms
Physical Exam
Vital Signs
Vital Signs
Temp Pulse Resp BP Pulse Ox
99.2 F 67 21 139/75 99
09/26/24 20:26 09/26/24 22:00 09/26/24 22:00 09/26/24 22:00 09/26/24 22:00
Physical Exam
General: Well Developed, Well Nourished and No Apparent Distress
HEENT: NormoCephalic, Anicteric, Moist mucous membranes, Atraumatic and PERRLA
Respiratory: Clear
Cardiac: S1/S2 and Regular Rhythm
Breast: Deferred by me
GI: Soft, Non Tender, Non Distended and Normal Bowel Sounds
Rectal: Deferred by Provider
Genito-urinary: Deferred by me
Musculoskeletal: No Clubbing, No Cyanosis and No Edema
Skin: Warm
Neuro: AO x 3
Hematologic/Lymphatic: No Lymphadenopathy
Psych: Calm
Laboratory Results
-
09/26/24 21:46
09/26/24 21:50
Laboratory Results
PT 15.9 Sec (11.4-14.6) H 09/26/24 21:46
INR 1.27 09/26/24 21:46
APTT 28.0 Sec (23.4-35.0) 09/26/24 21:46
Total Bilirubin 0.3 mg/dl (0.2-1.3) 09/26/24 21:50
AST 37 U/L (17-59) 09/26/24 21:50
ALT 25 U/L (0-50) 09/26/24 21:50
Alkaline Phosphatase 65 U/L (38-126) 09/26/24 21:50
Troponin I 0.107 ng/ml H* 09/26/24 21:11
Data Reviewed
-
CT Scan: Report Reviewed by me
Medical Tests (Nuc Med, Echo, EKG etc): Image Personally Visualized and interpreted
Lab Data: Labs Reviewed by me
Old Records: Reviewed
Impression/Plan
-
IMPRESSION:
84-year-old with history of aortic stenosis pending TAVR, status post recent catheter was negative for stenotic coronary disease, EF stable, history of RA and hypertension presenting to the emergency department with a finding of small bilateral PEs
on CT coronary angiogram. The patient is otherwise asymptomatic. In the emergency department he is ECG showed normal sinus rhythm without any acute ST or T wave changes. His troponin is however elevated at 0.1. CBC chemistries were unremarkable.
BNP is elevated. No strain on the CT but not a dedicated CT PE. Given size of clots unlikely to be strain however also has recent cath this month with clean coronaris and w/o chest pain.
PLAN:
1. PE - submassive by definition but no finding of strain, saddle emboli or large clot burden. hemodynamically stable and no st changes on ecg. No oxygen requirement.
- admit to imu
- heparin anticoagulation, sent message to pul to see if lytic candidate
- pulmonary consult
- no known risk factor or provoking event
- monitor cbc
-check andrey le for dvt
2. NSTEMI - ? PE vs silent SC? Recent clean coronaries with patent remote stent
- asa 324 x 1, continue aspirin 81
- cycle enzymes
- echo
- cardiology consult
- lipid panel and a1c
3. RA - stable
- continue plaquinel
Code Status - Full code
[2024-09-26] MEDS: HEPARIN 6500 UNITS IV (22:59)
[2024-09-27] VITALS (9 sets, daily range): BP systolic 106–142; BP diastolic 51–91; BMI 25.6
[2024-09-27] MEDS: LOW STRENGTH ASPIRIN 324 MG PO (00:19)
[2024-09-27] MEDS: HEPARIN 25000 UNITS/250 ML IV (00:24)
[2024-09-27 00:46] LABS: COVID-19 Antigen Negative (Negative)
--- NOTE | 2024-09-27 02:40 | PTCARENOTE ---
Pt received from ED RN. pt on 1500 u/hr / 15ml/hr heparin gtt per order. Pt AAO. NSR on monitor. sat 96% on RA. Call light in reach. Denies further needs at this time.
[2024-09-27 06:46] LABS: INR 1.33; PT 16.6 Sec (11.4-14.6)
[2024-09-27 06:58] LABS: Troponin I 0.117 ng/ml
[2024-09-27 07:03] LABS: APTT > 200 Sec (23.4-35.0)
[2024-09-27 07:23] LABS: Blood Urea Nitrogen 31 mg/dl (9-20); Carbon Dioxide 22 mmol/L (22-30); Chloride 110 mmol/L (98-107); Estimated Creatinine Clearance 38 ml/min; Glucose 92 mg/dl (70-99); HDL Cholesterol 67 mg/dl; LDL Cholesterol, Calculated 34 mg/dl; Potassium 4.1 mmol/L (3.5-5.1); Sodium 142 mmol/L (135-145); Total Cholesterol 109 mg/dl (50-199); Triglyceride 40 mg/dl (10-149); Very Low Density Lipoprotein 8 mg/dl (0-30); eGFR 48.95
--- NOTE | 2024-09-27 08:21 | CON.CAR ---
Addendum entered and electronically signed by Stuart Patrick MD 09/27/24 10:27:
84-year-old man with hypertension, aortic stenosis currently undergoing TAVR valuation, CAD and PVI now with bilateral pulmonary emboli and elevated troponin. He admits to slight increase in dyspnea over months but states he feels quite well at the
present time. Pulmonary embolus was discovered incidentally during TAVR CTA.
PMH: CAD, 70% posterolateral, 50 to 60% mid LAD distal to LAD stent by catheterization in August of this year, rheumatoid arthritis, CKD stage III, hypertension, aortic stenosis
PSH: Denies
FH/SH: Noncontributory
Allergies none
Outpatient meds: Reviewed
Current meds:Amlodipine 2.5 mg daily, atorvastatin 20 mg a day, Plaquenil, IV heparin, pantoprazole
ROS: As above
139/68, pulse 66, respirate 18, no distress, sitting comfortably in chair, head neck exam unremarkable, lungs are clear, aortic stenosis murmur, carotid bruits JVD normal, abdomen benign extremities without clubbing cyanosis or edema pulses intact
Hemoglobin 11.4, platelets 158, BUN/creatinine 31 and 1.4, potassium 4.1, proBNP 1440, Trope 0.117
ECG sinus rhythm, nonspecific ST and T wave changes, minor QRS widening
Echo is pending
Plan:
Despite his aortic stenosis and pulmonary embolism, he looks remarkably well.
.
His minor troponin elevation is to be expected and does not require further evaluation.
We will await echocardiogram looking for evidence of right heart strain, which will likely not be present.
Anticoagulation per primary team. Given that he does have coronary disease, it would be reasonable to continue aspirin, though probably not mandatory given that his PCI is from 2006 and he has been clinically stable.
Unfortunately, his pulmonary emboli will require postponement of LOUISE.
Original Note:
Consultation
Consultation Request
Date/Time Consultation Requested: 09/27/2024
Date/Time Consultation Performed: 09/27/2024
Requesting Provider: Dr. Liao
Performing Provider: Janet Mckeon PA-C for Dr. AFUA Patrick
Reason for Consultation: Elevated troponin, PE
Medical History
-
History of Present Illness:
HPI: Dany is an 84 year old male with PMH of CAD s/p LAD PCI, severe , CKD, RA, HTN, and HLD who presented to [facility] after he was found to have b/l PE by OP TAVR CT. He had noticed decreased exercise tolerance over the past few months and with
known , had started TAVR evaluation as OP. He had cardiac catheterization 09/13 which revealed stable CAD and he was seen by CT surgery on 09/[address] the same day. He was called the next day with the results of the CT scan and he was
told to come to [facility] for evaluation. In ER, he was not hypoxic and appeared stable. He was found to have elevated troponin and cardiology consult placed. He has been started on IV heparin and continues to feel well with no current complaints while
sitting up in chair. He denies any chest pain, palpitations, dizziness, or lightheadedness. LE US completed earlier today, results pending.
PMH:
CAD
s/p LAD PCI 02/2007
distal RCA occlusion noted by cath 11/04/2021
Severe by echo 08/17/2024
CKD 3a
RA
HTN
HLD
Past Medical History
Past Medical History: Other (In HPI)
Past Surgical History: Cardiac (LAD PCI 02/2007) and Other (back surgeries, R rotator cuff repair, b/l cataract surgery)
Social History
Tobacco: Former Smoker
Alcohol: Occasional
Drug: None
Personal:
Living: With Family
Family History
Family History: Cancer
Allergies / Home Medications
Allergy/AdvReac Type Severity Reaction Status Date / Time
No Known Allergies Allergy Verified 09/26/24 20:26
�Medication �Instructions �Recorded �Confirmed �Type
aspirin 81 mg tablet,delayed 81 mg PO DAILY Blood clot 09/18/21 09/26/24 History
release prevention/tx
hydroxychloroquine 200 mg tablet 400 mg PO DAILY Autoimmune disorder 09/18/21 09/26/24 History
glucosamine sulf dipot 1 cap PO BID 04/28/23 09/26/24 History
chlr,msm,chond 550 mg-C 30 mg-alphonse
1 mg capsule (Glucosamine
Chondroitin)
amlodipine 2.5 mg tablet 2.5 mg PO DAILY #90 tabs 09/13/24 09/26/24 Rx
atorvastatin 20 mg tablet 20 mg PO HS 09/26/24 09/26/24 History
gabapentin 300 mg capsule 300 mg PO DAILYPRN PRN moderate 09/26/24 09/26/24 History
pain
therapeutic multivitamin 1 tab PO DAILY 09/26/24 09/26/24 History
Review of Systems
-
History Source: Patient
All other systems: Negative unless noted
Physical Exam
Vital Signs
Temp Pulse Resp BP Pulse Ox
98 F 63 18 128/64 98
09/27/24 07:27 09/27/24 06:30 09/27/24 06:30 09/27/24 06:00 09/27/24 06:30
Lab Results
09/26/24 21:46
09/27/24 06:23
Troponin I Cancelled 09/27/24 22:01
Sjs-M-Cfzmberoise Pept 1440 pg/ml 09/26/24 21:11
Physical Exam
General: Well Developed, Well Nourished and No Apparent Distress
HEENT: Normocephalic, Anicteric and Moist Mucous Membranes
Respiratory: Clear and Non Labored Respirations
Cardiac: S1/S2, Regular Rhythm and Murmur
Musculoskeletal: No Clubbing, No Cyanosis and No Edema
Skin: Warm and Dry
Neuro: AO x 3 and Nonfocal/Grossly Intact
Psych: Calm
Impression / Plan
-
PCP: Dr. Ortiz
Coremaker Helper: Dr. Stanislaw Vásquez
Impression:
b/l PE by TAVR CT 09/25/2024
Elevated troponin
CAD
s/p LAD PCI 02/2007
distal RCA occlusion noted by cath 11/04/2021
Severe by echo 08/17/2024
CKD 3a
RA
HTN
HLD
Echo 08/17/2024: EF 55%, mod cLVH, mild early systolic MR, severe with peak/mean gradients 45/23 mmHg, DANA 0.8 cm2,
Echo 09/27/2024: Study pending
Plan:
-Presented for evaluation of b/l PE found incidentally on OP TAVR CT. Not hypoxic, no SOB at rest. LE US completed, report pending
-Continue IV heparin, eventually transition to OAC.
-Elevated troponin noted, up to 0.117. Continue to trend to peak. Suspect nonischemic myocardial injury in the setting of PE. No chest pain
-Echo pending 09/27.
-EKG reviewed, stable, SR. No acute ischemic changes noted.
-Recent cardiac cath 09/13 with stable CAD. Continue aspirin 81mg daily.
-BP stable, continue amlodipine.
-LDL 34, continue lipitor 20mg daily.
HPI: Dany is an 84 year old male with PMH of CAD s/p LAD PCI, severe , CKD, RA, HTN, and HLD who presented to [facility] after he was found to have b/l PE by OP TAVR CT. He had noticed decreased exercise tolerance over the past few months and with
known , had started TAVR evaluation as OP. He had cardiac catheterization 09/13 which revealed stable CAD and he was seen by CT surgery on 09/[address] the same day. He was called the next day with the results of the CT scan and he was
told to come to [facility] for evaluation. In ER, he was not hypoxic and appeared stable. He was found to have elevated troponin and cardiology consult placed. He has been started on IV heparin and continues to feel well with no current complaints while
sitting up in chair. He denies any chest pain, palpitations, dizziness, or lightheadedness. RONALDO WEIR completed earlier today, results pending.
Data Reviewed
-
EKG: Tracing Personally Visualized and interpreted
CT Scan: Report Reviewed by me
Labs: Labs Reviewed by me
Old Records: Reviewed
[2024-09-27] MEDS: PROTONIX 40 MG PO (09:05)
[2024-09-27] MEDS: COLACE 100 MG PO ×2 (09:06→21:16)
[2024-09-27] MEDS: NORVASC 2.5 MG PO (09:06)
--- NOTE | 2024-09-27 09:54 | CON.PUL ---
Consultation
Consultation Request
Date/Time Consultation Requested: 09/27/24
Date/Time Consultation Performed: 09/27/24
Performing Provider: Nila
Reason for Consultation: PE
Medical History
-
History of Present Illness:
Patient is an 84-year-old male with previous history of CAD, a hypertension presenting from home for abnormal CT scan. He notes he underwent outpatient CT for TAVR workup and was incidentally noted to have bilateral PE. He had been complaining of
progressive dyspnea over the past 6 months. No prior history of VTE in the past, he is a former smoker but no known lung disease. Denies family history of VTE as well. He denies sedentary behavior, very active daily. Placed on IV heparin and
admitted.
Past Medical History
Past Medical History: Other (see list below)
Social History
Tobacco: Non-smoker
Alcohol: None
Drug: None
Family History
Family History: Reviewed & Not Pertinent
Allergies / Home Medications
Allergies
Allergy/AdvReac Type Severity Reaction Status Date / Time
No Known Allergies Allergy Verified 09/26/24 20:26
Home Medications
�Medication �Instructions �Recorded �Confirmed �Last Taken �Type
aspirin 81 mg tablet,delayed 81 mg PO DAILY Blood clot 09/18/21 09/26/24 09/26/24 History
release prevention/tx
hydroxychloroquine 200 mg tablet 400 mg PO DAILY Autoimmune disorder 09/18/21 09/26/24 09/26/24 History
glucosamine sulf dipot 1 cap PO BID Supplement 04/28/23 09/26/24 09/26/24 History
chlr,msm,chond 550 mg-C 30 mg-alphonse
1 mg capsule (Glucosamine
Chondroitin)
amlodipine 2.5 mg tablet 2.5 mg PO DAILY #90 tabs 09/13/24 09/26/24 09/26/24 Rx
atorvastatin 20 mg tablet 20 mg PO HS High Cholesterol 09/26/24 09/26/24 09/25/24 History
gabapentin 300 mg capsule 300 mg PO DAILYPRN PRN moderate 09/26/24 09/26/24 Unknown History
pain
therapeutic multivitamin 1 tab PO DAILY Supplement 09/26/24 09/26/24 09/26/24 History
Review of Systems
-
History Source: Patient
All other systems: Negative unless noted
Vitals / Labs / Diagnostic Testing
Vital Signs
Temp Pulse Resp BP Pulse Ox
98 F 66 18 139/68 98
09/27/24 07:27 09/27/24 09:06 09/27/24 06:30 09/27/24 09:06 09/27/24 06:30
Lab Data
09/26/24 21:46
09/27/24 06:23
Laboratory Results
09/26/24 09/26/24 09/26/24
21:11 21:46 21:57
PT Cancelled 15.9 H
INR Cancelled 1.27
APTT Cancelled 28.0 Cancelled
09/27/24
06:23
PT 16.6 H
INR 1.33
APTT > 200 H*
Diagnostic Testing:
Physical Exam
-
HEENT: Normocephalic, Anicteric and Moist Mucous Membranes
Cardiovascular: S1/S2 and Regular Rhythm
Respiratory: Clear and Non-Labored Respirations
GI: Soft, Non Distended and Non Tender
Neurology: Awake, Alert, Oriented and No Motor Deficits
Skin: Warm, Dry and Good Color
General: Comfortable and Other (NAD)
Assessment
-
Patient is an 84-year-old male with previous history of CAD, a hypertension presenting from home for abnormal CT scan. He notes he underwent outpatient CT for TAVR workup and was incidentally noted to have bilateral PE. He had been complaining of
progressive dyspnea over the past 6 months. No prior history of VTE in the past, he is a former smoker but no known lung disease. Denies family history of VTE as well. We are consulted for eval.
Acute bilateral PE - unprovoked
Progressive dyspnea x 6 months
Conditions present prior to admission
CAD s/p LAD PCI 02/2007; distal RCA occlusion noted by cath 11/04/2021
Severe by echo 08/17/2024
Mild centrilobular emphysema on CT
Bilateral pleural plaques/asbestosis
Former smoker
CKD 3a
RA
HTN
HLD
GERD
History of back surgeries/3 LUMBAR SURGERIES/1 CERVICAL 2010
Right shoulder arthroscopy, subacromial decompression, distal clavicle excision, rotator cuff repair 11/2015
B/l cataract surgery
Sinus surgery 08/2019
Diverticulosis
Shoulder impingement syndrome, right
Neuropathy
Plan
No oxygen was needed on admission, currently saturating >90% on RA
No prior history of lung disease is noted, lifelong nonsmoker
Denies sedentary lifestyle, denies prior VTE/family history of VTE
Suspect patient has unprovoked PE
Imaging reviewed, no RV strain
Placed on IV heparin but can transition to OAC per team
Prior ECHO results are reviewed indicating severe
Undergoing TAVR w/u per team
Ongoing w/u can be followed as OP
May need hypercoag w/u as OP given unprovoked history
Can be done as OP
Will need outpatient pulmonary evaluation in our office for PFTs and 6MWT
Reviewed with patient
Will place info into chart
Discharge planning per patient once tolerating OAC
Diagnostic Data
Chest X-Ray: 11/03/21- Few small bilateral nodular opacities again seen which could represent old granulomatous disease or pleural/parenchymal thickening without significant change.
CT Scan: TAVR 09/25/24- 1. Mild bilateral pulmonary thromboembolus with small filling defects in the left lower lobe segmental and subsegmental pulmonary arteries and the right lower lobe subsegmental pulmonary arteries.
2. Mild centrilobular emphysema.
3. Bilateral pleural plaques most in keeping with previous asbestos exposure.
4. Moderate coronary artery calcifications.
5. Moderate to severe disc valve calcifications.
[facility] 09/13/24- RA (m) : 8 - RV (s/d,m) : 42/1, 15 - PA (s/d, m) : 46/11, 22 - PCWP (m) : 12 - PA saturation: 64.5% on room air
LVEDP : 12 - Invasive mean transaortic gradient of 39 mmHg, aortic valve area is in the severe range at 0.68 cm�
CONCLUSIONS
1. Stable coronary artery disease with tandem 50 to 60% stenoses in mid LAD distal to prior stent.
2. Stable 70% stenosis in the posterolateral branch.
3. Normal to mildly elevated right and left-sided filling pressures with reduced cardiac output in the setting of elevated systemic vascular resistance.
Echo 08/17/2024: EF 55%, mod cLVH, mild early systolic MR, severe with peak/mean gradients 45/23 mmHg, DANA 0.8 cm2,
Echo 09/27/2024: Study pending
PFT's:
Reports and relevant images were personally reviewed.
Total time spent on this consultation __76__ includes review of history, physical exam, medications, laboratory data, personal review of imaging, extensive review of outpatient records, discussion with care team and respiratory therapy.
[2024-09-27] MEDS: PLAQUENIL 400 MG PO (10:00)
--- NOTE | 2024-09-27 10:21 | W.PN.HOSP.TC ---
Addendum entered and electronically signed by Cornelius Lutz MD 09/27/24 15:43:
Le venous doppler report pending, discussed with radiology, await report
Change Heparin drip to elquis tonight.
Original Note:
Today's Communication/Plan
-
see note
Assessment / Plan
Assessment / Plan
CT coronary
1. Mild bilateral pulmonary thromboembolus with small filling defects in the left lower lobe segmental and subsegmental pulmonary arteries and the right lower lobe subsegmental pulmonary arteries.
2. Mild centrilobular emphysema.
3. Bilateral pleural plaques most in keeping with previous asbestos exposure.
4. Moderate coronary artery calcifications.
5. Moderate to severe disc valve calcifications.

1. Bilateral Pulmonary embolism
- submassive and found incidentally on CT coronary done for part of TAVR workup
- Currently on heparin drip
- LE venous doppler report pending
- No provoking factor. no reported h/o malignancy. out of screening window.
- Likely will be transitioned to Eliquis.
2. Troponin elevation
- presumed non ischemic myocardial inj
- [facility] earlier in month didnt show any significant coronary lesion
- cardio evaluating and help appreciated
3. RA - stable
- continue plaquinel
Code Status - Full code
Case discussed with pulm/cards
Transfer to tele
Total time spent : 52 mins
Anticipated Discharge: Within 24 hours
Subjective/Interval History
-
Date of Service: September 27, 2024
denies of having any issues
no chest pain/sob/palpitation
Objective Data
-
Labs:
Laboratory Results
09/26/24 09/27/24 09/27/24
21:57 06:23 15:00
PT 16.6 H
INR 1.33
APTT Cancelled > 200 H* Pending
Sodium 142
Potassium 4.1
Chloride 110 H
Carbon Dioxide 22
BUN 31 H
Creatinine 1.4 H
Glucose 92
Calcium 9.0
Vital Signs:
Vital Signs
Temp Pulse Resp BP Pulse Ox
98 F 66 18 139/68 98
09/27/24 07:27 09/27/24 09:06 09/27/24 06:30 09/27/24 09:06 09/27/24 06:30
I&O
09/26/24 09/27/24 09/28/24
06:59 06:59 06:59
Output Total 300 / 300
Balance -300 / -300
Review of Systems
-
Respiratory: Reports No Symptoms
Cardiac: Reports No Symptoms
Abdomen/GI: Reports No Symptoms
Physical Exam
-
General: No Apparent Distress and Comfortable
HEENT: Negative Oxygen
Respiratory: Clear to Auscultation
Cardiac: Regular Rhythm and S1/S2; Negative Murmur or Rub
GI: Soft, Nontender and Nondistended
Musculoskeletal: No Edema
Neuro: Awake, Alert, Oriented, No Motor Deficits and Nonfocal/Grossly Intact
Psych: Calm
[2024-09-27 15:21] LABS: APTT 90.9 Sec (23.4-35.0)
[2024-09-27 15:35] LABS: Troponin I 0.095 ng/ml
--- NOTE | 2024-09-27 16:53 | CM ---
Patient with Dx Bilateral Pulmonary embolism. Room air. Receiving Heparin gtt.
Met with patient who resides alone in a 1 story house with 2 LILLIE.
The patient has been independent in ADLs and ambulation.
He is active, drives and shops by himself.
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
No housing/food/utility/transport insecurity.
DME - [facility], [facility]
No prior VN or SNF.
PCP - Mago Ortiz
Pharmacy - [facility]
No CM d/c needs identified.
Plan home.
[2024-09-27] MEDS: ELIQUIS 10 MG PO (21:17)
[2024-09-27] MEDS: LIPITOR 20 MG PO (21:17)
[2024-09-28 03:07] VITALS: BP 135/73
[2024-09-28 07:14] LABS: Blood Urea Nitrogen 25 mg/dl (9-20); Carbon Dioxide 24 mmol/L (22-30); Chloride 109 mmol/L (98-107); Estimated Creatinine Clearance 38 ml/min; Glucose 92 mg/dl (70-99); Potassium 4.3 mmol/L (3.5-5.1); Sodium 143 mmol/L (135-145); eGFR 48.95
[2024-09-28 07:15] VITALS: BP 124/70
[2024-09-28 07:25] LABS: Hemoglobin 11.3 g/dL (13.0-18.0); Mean Corp Hgb Conc. 34.2 g/dL (33.0-37.0); Mean Corpuscular Hgb 30.5 pg (27.0-31.0); Mean Corpuscular Volume 88.9 fL (80.0-94.0); Mean Platelet Volume 10.3 fL (7.4-10.4); Platelet Count 164 10^3/uL (130-400); Red Blood Cell Count 3.71 10^6/uL (4.70-6.10); Red Cell Dist. Width 13.2 % (11.5-14.5); White Blood Cell Count 4.7 10^3/uL (4.8-10.8)
[2024-09-28] MEDS: COLACE 100 MG PO (07:51)
[2024-09-28] MEDS: NORVASC 2.5 MG PO (07:51)
[2024-09-28] MEDS: ELIQUIS 10 MG PO (07:51)
[2024-09-28] MEDS: LOW STRENGTH ASPIRIN 81 MG PO (07:51)
[2024-09-28] MEDS: PROTONIX 40 MG PO (07:52)
[2024-09-28] MEDS: PLAQUENIL 400 MG PO (07:52)
[2024-09-28] MEDS: FLUSH (NSS) 1 FLUSH IV (07:53)
--- NOTE | 2024-09-28 08:42 | W.PN.PUL3 ---
Today's Communication / Plan
-
Doing well today, stable on RA
Tolerating Eliquis, off IV heparin
Encouraged OOB/PT/ambulate
Discharge planning per team
Outpatient pulmonary FU recommended, placed in chart
Assessment
-
Patient is an 84-year-old male with previous history of CAD, a hypertension presenting from home for abnormal CT scan. He notes he underwent outpatient CT for TAVR workup and was incidentally noted to have bilateral PE. He had been complaining of
progressive dyspnea over the past 6 months. No prior history of VTE in the past, he is a former smoker but no known lung disease. Denies family history of VTE as well. We are consulted for eval.
Acute bilateral PE - unprovoked
Progressive dyspnea x 6 months
Conditions present prior to admission
CAD s/p LAD PCI 02/2007; distal RCA occlusion noted by cath 11/04/2021
Severe by echo 08/17/2024
Mild centrilobular emphysema on CT
Bilateral pleural plaques/asbestosis
Former smoker
CKD 3a
RA
HTN
HLD
GERD
History of back surgeries/3 LUMBAR SURGERIES/1 2010
Right shoulder arthroscopy, subacromial decompression, distal clavicle excision, rotator cuff repair 11/2015
B/l cataract surgery
Sinus surgery 08/2019
Diverticulosis
Shoulder impingement syndrome, right
Neuropathy
Plan
No oxygen was needed on admission, currently saturating >90% on RA
No prior history of lung disease is noted, lifelong nonsmoker
Denies sedentary lifestyle, denies prior VTE/family history of VTE
Suspect patient has unprovoked PE
Imaging reviewed, no RV strain
Off IV heparin, transition to PO OAC, tolerating
Prior ECHO results are reviewed indicating severe
Undergoing TAVR w/u per team
Ongoing w/u can be followed as OP
May need hypercoag w/u as OP given unprovoked history
Can be done as OP
Will need outpatient pulmonary evaluation in our office for PFTs and 6MWT
Reviewed with patient
Placed info into chart
Discharge planning per patient once tolerating OAC
Diagnostic Data
Chest X-Ray: 11/03/21- Few small bilateral nodular opacities again seen which could represent old granulomatous disease or pleural/parenchymal thickening without significant change.
CT Scan: TAVR 09/25/24- 1. Mild bilateral pulmonary thromboembolus with small filling defects in the left lower lobe segmental and subsegmental pulmonary arteries and the right lower lobe subsegmental pulmonary arteries.
2. Mild centrilobular emphysema.
3. Bilateral pleural plaques most in keeping with previous asbestos exposure.
4. Moderate coronary artery calcifications.
5. Moderate to severe disc valve calcifications.
LHC/RHC 09/13/24- RA (m) : 8 - RV (s/d,m) : 42/1, 15 - PA (s/d, m) : 46/11, 22 - PCWP (m) : 12 - PA saturation: 64.5% on room air
LVEDP : 12 - Invasive mean transaortic gradient of 39 mmHg, aortic valve area is in the severe range at 0.68 cm�
CONCLUSIONS
1. Stable coronary artery disease with tandem 50 to 60% stenoses in mid LAD distal to prior stent.
2. Stable 70% stenosis in the posterolateral branch.
3. Normal to mildly elevated right and left-sided filling pressures with reduced cardiac output in the setting of elevated systemic vascular resistance.
Echo 08/17/2024: EF 55%, mod cLVH, mild early systolic MR, severe with peak/mean gradients 45/23 mmHg, DANA 0.8 cm2,
Echo 09/27/2024: Study pending
PFT's:
Reports and relevant images were personally reviewed.
Total time spent on this encounter __51__ includes review of history, physical exam, medications, laboratory data, personal review of imaging, extensive review of outpatient records, discussion with care team and respiratory therapy.
Subjective Data
-
Date of Service:
Date of Service: September 28, 2024
Chief Complaint: Pulmonary Follow Up
Subjective:
Doing well today, stable on RA
No complaints, feels great
Objective Data
Data Reviewed
Vital Signs / I&O / Oxygen:
Vital Signs
Temp Pulse Resp BP Pulse Ox
98.1 F 56 18 124/70 95
09/28/24 07:15 09/28/24 07:15 09/28/24 07:15 09/28/24 07:15 09/28/24 07:15
Intake and Output
09/27/24 09/28/24 09/29/24
06:59 06:59 06:59
Intake Total 1140 / 1140
Output Total 300 / 300
Balance 840 / 840
SaO2 95
Physical Exam
General: Comfortable and Other (NAD)
HEENT: Normocephalic, Anicteric and Moist Mucous Membranes
Cardiovascular: S1-S2 and Regular Rhythm
Respiratory: Clear and Non-Labored Respirations
GI: Soft, Non Distended and Non Tender
Neurology: Awake, Alert, Oriented, AO x 3 and No Motor Deficits
Skin: Warm, Dry and Good Color
Labs/Micro/Reports
Lab Data
09/28/24 06:41
09/28/24 06:41
Laboratory Results
09/27/24
14:57
APTT 90.9 H
--- NOTE | 2024-09-28 10:59 | W.PN.CARDCBS ---
Addendum entered and electronically signed by Stuart Patrick MD 09/28/24 12:15:
84-year-old man with hypertension, aortic stenosis currently undergoing TAVR valuation, CAD and PVI now with bilateral pulmonary emboli and elevated troponin. He admits to slight increase in dyspnea over months but states he feels quite well at the
present time. Pulmonary embolus was discovered incidentally during TAVR CTA.
PMH: CAD, 70% posterolateral, 50 to 60% mid LAD distal to LAD stent by catheterization in August of this year, rheumatoid arthritis, CKD stage III, hypertension, aortic stenosis
PSH: Denies
FH/SH: Noncontributory
Allergies none
Outpatient meds: Reviewed
Current meds: Amlodipine 2.5 mg daily, atorvastatin 20 mg at bedtime, Plaquenil 400 mg daily, pantoprazole 40 mg a day, Colace 100 mg twice daily, aspirin 81 mg a day and apixaban 10 mg twice daily
ROS: As above
124/70, pulse 56, no distress, lungs are clear, aortic stenosis murmur, regular rhythm, carotids with bruits JVP okay, abdomen benign extremities without clubbing/edema
Echocardiogram September 27: Moderate LVH, EF 55-60%, thickened mitral leaflets, MAC, trace MR and dilated left atrium, moderate to severe AAS, peak and mean gradients are 53 and 30 mmHg, valve area 1.0 cm to, no aortic regurgitation, pulmonary artery
systolic pressure of 37 mmHg, no right heart strain
Leg vein ultrasound negative for DVT
Hemoglobin 11.3, troponin 0.095, BUN and creatinine 25 and 1.4, potassium 4.3
Impression:
b/l PE by TAVR CT 09/25/2024
Elevated troponin
CAD
s/p LAD PCI 02/2007
distal RCA occlusion noted by cath 1Severe by echo 08/17/2024
CKD 3a
RA
HTN
HLD
Plan:
Stable from cardiac standpoint.
No objection to discharge.
Eliquis per primary team. Given remote PCI, it is reasonable to continue aspirin.
We will arrange for cardiac follow-up.
Original Note:
Today's Communication / Plan
-
continue eliquis for PE
currently also on asa
no evidence of R heart strain by echo
will arrange OP cardiac follow up. TAVR team aware
Impression / Plan
-
PCP: Dr. Ortiz
Iron Worker Foreman: Dr. Stanislaw Vásquez
Impression:
b/l PE by TAVR CT 09/25/2024
Elevated troponin
CAD
s/p LAD PCI 02/2007
distal RCA occlusion noted by cath 11/04/2021
Severe by echo 08/17/2024
CKD 3a
RA
HTN
HLD
Echo 08/17/2024: EF 55%, mod cLVH, mild early systolic MR, severe with peak/mean gradients 45/23 mmHg, DANA 0.8 cm2,
Echo 09/27/2024: EF 55 to 60%, moderate concentric LVH, MAC, trace MR, dilated left atrium, moderate to severe with peak/mean gradients 50/30 mmHg, DANA 1.0 cm�, normal right heart with PASP 37 mmHg, no evidence of right heart strain
Plan:
-Presented for evaluation of B/L PE found incidentally on OP TAVR CT. Not hypoxic, no SOB at rest.
-LE US negative for DVT B/L
-transitioned to eliquis 10mg BID - continue eliquis dosing for PE
-trop peaked at 0.117. no CP. Suspect nonischemic myocardial injury in the setting of PE.
-EKG normal sinus rhythm with nonspecific T wave abnormality. review of tele overnight SR with PACs.
-Echo with preserved EF, no evidence of right heart strain
-Recent cardiac cath 09/13 with stable CAD. Continue aspirin 81mg daily.
-BP stable, continue amlodipine.
-LDL 34, continue lipitor 20mg daily.
-will arrange OP cardiac follow up. TAVR team aware of patient
-will sign off. please call with questions.
HPI: Dany is an 84 year old male with PMH of CAD s/p LAD PCI, severe , CKD, RA, HTN, and HLD who [facility] after he was found to have b/l PE by OP TAVR CT. He had noticed decreased exercise tolerance over the past few months and with
known , had started TAVR evaluation as OP. He had cardiac catheterization 09/13 which revealed stable CAD and he was seen by CT surgery on 09/[address] the same day. He was called the next day with the results of the CT scan and he was
told to come [facility] for evaluation. In ER, he was not hypoxic and appeared stable. He was found to have elevated troponin and cardiology consult placed. He has been started on IV heparin and continues to feel well with no current complaints while
sitting up in chair. He denies any chest pain, palpitations, dizziness, or lightheadedness. RONALDO WEIR completed earlier today, results pending.
Progress Note - Iron Worker Foreman
Subjective
Date of Service: September 28, 2024
feeling well. no CP
Objective
Labs:
09/28/24 06:41
09/28/24 06:41
Labs
Hgb 11.3 g/dL (13.0-18.0) L 09/28/24 06:41
Hct 33.0 % (39.0-52.0) L 09/28/24 06:41
Plt Count 164 10^3/uL (130-400) 09/28/24 06:41
PT 16.6 Sec (11.4-14.6) H 09/27/24 06:23
INR 1.33 09/27/24 06:23
APTT 90.9 Sec (23.4-35.0) H 09/27/24 14:57
Sodium 143 mmol/L (135-145) 09/28/24 06:41
Potassium 4.3 mmol/L (3.5-5.1) 09/28/24 06:41
BUN 25 mg/dl (9-20) H 09/28/24 06:41
Creatinine 1.4 mg/dL (0.7-1.3) H 09/28/24 06:41
Glucose 92 mg/dl (70-99) 09/28/24 06:41
Troponins
09/26/24 09/27/24 09/27/24
21:11 06:23 10:01
Troponin I 0.107 H* 0.117 H* Cancelled
09/27/24 09/27/24 09/27/24
13:01 14:57 16:01
Troponin I Cancelled 0.095 H* Cancelled
09/27/24 09/27/24 09/27/24
19:01 21:00 22:01
Troponin I Cancelled Cancelled Cancelled
Vital Signs and I&O:
Vital Signs
Temp Pulse Resp BP Pulse Ox
98.1 F 56 18 124/70 95
09/28/24 07:15 09/28/24 07:15 09/28/24 07:15 09/28/24 07:15 09/28/24 07:15
Vital Signs
Temp Pulse Resp BP Pulse Ox
98.1 F 56 18 124/70 95
09/28/24 07:15 09/28/24 07:15 09/28/24 07:15 09/28/24 07:15 09/28/24 07:15
Intake & Output
09/26/24 09/27/24 09/28/24 09/29/24
07:59 07:59 07:59 07:59
Intake Total 1140 / 1140
Output Total 300 / 300
Balance 840 / 840
Physical Exam
Physical Exam
GEN: No distress, awake, alert, oriented x3
HEENT: supple, anicteric, mmm, eomi
LUNGS: CTA B/L, no wheezes/rales
CV: Reg, S1/S2, 2/6 syst LSB
ABD: soft, BS+, NT/ND
EXT: No cyanosis, clubbing, edema
NEURO: Gross non-focal
SKIN: Warm, pink, dry. No rash
[2024-09-28 11:16] VITALS: BP 119/68
--- NOTE | 2024-09-28 11:16 | W.PN.HOSP.TC ---
Today's Communication/Plan
-
d/c home
Assessment / Plan
Assessment / Plan
CT coronary
1. Mild bilateral pulmonary thromboembolus with small filling defects in the left lower lobe segmental and subsegmental pulmonary arteries and the right lower lobe subsegmental pulmonary arteries.
2. Mild centrilobular emphysema.
3. Bilateral pleural plaques most in keeping with previous asbestos exposure.
4. Moderate coronary artery calcifications.
5. Moderate to severe disc valve calcifications.
Venous Doppler LE
No evidence of deep venous thrombosis of the lower extremities bilaterally.

1. Bilateral Pulmonary embolism
- submassive and found incidentally on CT coronary done for part of TAVR workup
- LE venous doppler neg for clot.
- No provoking factor. no reported h/o malignancy. out of screening window.
- was on heparin drip, transitioned to oral eliquis.
2. Troponin elevation
- presumed non ischemic myocardial inj
- LHC earlier in month didnt show any significant coronary lesion
- cardio evaluating and help appreciated
3. RA - stable
- continue plaquinel
Code Status - Full code
Discharge home
Anticipated Discharge: Today
Subjective/Interval History
-
Date of Service: September 28, 2024
no complains overnight
denies of having shortness breath/chest pain/palpitation
Objective Data
-
Labs:
Laboratory Results
09/28/24
06:41
WBC 4.7 L
Hgb 11.3 L
Hct 33.0 L
Plt Count 164
Sodium 143
Potassium 4.3
Chloride 109 H
Carbon Dioxide 24
BUN 25 H
Creatinine 1.4 H
Glucose 92
Calcium 9.0
Vital Signs:
Vital Signs
Temp Pulse Resp BP Pulse Ox
98.1 F 56 18 124/70 95
09/28/24 07:15 09/28/24 07:15 09/28/24 07:15 09/28/24 07:15 09/28/24 07:15
I&O
09/27/24 09/28/24 09/29/24
06:59 06:59 06:59
Intake Total 1140 / 1140
Output Total 300 / 300
Balance 840 / 840
Review of Systems
-
Respiratory: Reports No Symptoms
Cardiac: Reports No Symptoms
Abdomen/GI: Reports No Symptoms
Physical Exam
-
General: No Apparent Distress and Comfortable
HEENT: Negative Oxygen
Respiratory: Clear to Auscultation
Cardiac: Regular Rhythm and S1/S2; Negative Murmur or Rub
GI: Soft, Nontender and Nondistended
Musculoskeletal: No Edema
Neuro: Awake, Alert, Oriented, No Motor Deficits and Nonfocal/Grossly Intact
Psych: Calm
[2024-09-28] MEDS: FLUAD (65 yr+) 2024-2025 FORMULA 0.5 ML IM (12:04)
--- NOTE | 2024-09-28 13:52 | CM ---
MD entered order for discharge.
Spoke with pt and his son in room.
He said he was ready for discharge.
Offered V he declined need.
His son will follow his car home at ar.
PLAN HOme no needs
--- NOTE | 2024-09-30 16:26 | W.DCSUMMARY ---
Discharge Summary
Discharge Data
Date of Admission: 09/26/24
Date of Discharge: 09/28/24
-
Pending Results: No
Hospital Course
Discharging Physician : Dr Cornelius Lutz
Disposition : Home
Primary care physician : Dr Mago Ortiz
Principal Discharge diagnosis :
Bilateral pulmonary embolism
Nonischemic myocardial injury related troponin elevation
Chronic Discharge diagnosis :
Rheumatoid arthritis
Essential hypertension
Neuropathy
Hospital Course :
Patient is 84-year-old male female with admission past medical history To ER after outpatient CT coronary angiogram done as part of pre-TAVR workup showing small bilateral pulmonary emboli. Patient did not have any associated chest
discomfort/palpitation/shortness of breath/dizziness. No reported recent episodes of any lower extremity swelling, no previous episode of blood clot. A lower extremity venous Doppler was negative for any DVT as well. Patient was started on IV
heparin drip and was admitted for evaluation by cardiology and pulmonology. A follow-up echocardiogram did not show any signs of RV strain. Patient was transition to [facility] at time of discharge. Patient will be postponed few weeks due to new PE
diagnosis.
Important imaging findings :
None
Procedure findings :
None
Discharge Plan
-
Patient Disposition: Home (Routine Discharge)
Discharge Diagnosis/Procedures: Bilateral PE
Condition: Fair
Diet: 2 Gram Sodium
Activity: As tolerated
Additional Activity: No heavy lifting
Driving Restrictions: As prior to admission
Bathing Restrictions: OK to Shower
Referrals:
Amy Sutton MD [Active] - in four to six weeks (PFTs)
Nicole Macias PA-C [Specified Professional Personl] - 10/23/24 9:40 am (You have a cardiology follow-up appointment at the [facility] office with Dr. Dover's physician assistant professor of life sciences, Nicole. Please call with questions)
Mago Ortiz CRNP [Family Provider] - in one week
Prescriptions:
New
Eliquis 5 mg tablet
See Rx Instructions .ROUTE .COMPLEX Qty: 70 0RF
Rx Instructions:
Take 2 Tablets Twice daily for 6 Days THEN
Take 1 Tablet Twice daily for maintenance
1st month supply
Eliquis 5 mg tablet
5 mg PO BID Qty: 60 1RF
Rx Instructions:
2nd month onward supply
Continued
aspirin 81 MG tablet,delayed release (DR/EC)
81 mg PO DAILY
hydroxychloroquine 200 MG tablet
400 mg PO DAILY
Glucosamine Chondroitin 550-30-1 mg Capsule
1 cap PO BID
amlodipine 2.5 mg tablet
2.5 mg PO DAILY Qty: 90 5RF
therapeutic multivitamin Tablet
1 tab PO DAILY
gabapentin 300 mg Capsule
300 mg PO DAILYPRN PRN (Reason: moderate pain)
atorvastatin 20 mg tablet
20 mg PO HS
Discharge Orders:
Discharge Patient (As Directed); Ordered 09/28/24
Ordered By: Cornelius Lutz
Discharge Date and Time
Discharge Date/Time: 09/28/24 13:22
Print Language: SERBIAN
== END 2024-09-28 13:22 | disposition home or self-care (01) | DRG 176 ==
LOC: 4 EAST ACU 22:46
PROVIDERS: ADMITTING PHYSICIAN Internal Medicine; ATTENDING PHYSICIAN Hospitalist; EMERGENCY PHYSICIAN Emergency Medicine; FAMILY PHYSICIAN Nurse Practitioner Family; OTHER PHYSICIAN Internal Medicine; OTHER PHYSICIAN Internal Medicine Cardiovascular Disease
DX: I26.99 Other pulmonary embolism without acute cor pulmonale (principal); I5A Non-ischemic myocardial injury (non-traumatic); I12.9 Hypertensive chronic kidney disease with stage 1 through stage 4 chronic kidney disease, or unspecified chronic kidney disease; N18.31 Chronic kidney disease, stage 3a; I35.0 Nonrheumatic aortic (valve) stenosis; I73.9 Peripheral vascular disease, unspecified; J43.2 Centrilobular emphysema; M06.9 Rheumatoid arthritis, unspecified; J61 Pneumoconiosis due to asbestos and other mineral fibers; I25.10 Atherosclerotic heart disease of native coronary artery without angina pectoris; Z95.5 Presence of coronary angioplasty implant and graft; G62.9 Polyneuropathy, unspecified; E78.00 Pure hypercholesterolemia, unspecified; K21.9 Gastro-esophageal reflux disease without esophagitis; K57.30 Diverticulosis of large intestine without perforation or abscess without bleeding; K58.9 Irritable bowel syndrome, unspecified; Z79.82 Long term (current) use of aspirin; Z79.899 Other long term (current) drug therapy; Z87.891 Personal history of nicotine dependence
CPT/HCPCS: 75572; 80048; 80053; 80061; 83036; 83880; 84484; 85027; 85610; 85730; 87811; 90662; 93005; 93306; 93970; 96365; 99285; G0008; Q9967

== ENCOUNTER → 2024-10-09 09:24 | Outpatient (REF) | payer MEDICARE, SELFPAY | LOC: RAD 09:24 | PROVIDERS: ATTENDING PHYSICIAN Nurse Practitioner Acute Care; FAMILY PHYSICIAN Nurse Practitioner Family | DX: I35.0 Nonrheumatic aortic (valve) stenosis (principal) | CPT/HCPCS: 74174; Q9967 ==

== ENCOUNTER 2024-11-08 10:35 | Inpatient (IN) | payer MEDICARE, SELFPAY ==
[2024-10-23 08:30] VITALS: BMI 25.6
[2024-10-23 09:04] LABS: Urine Albumin Trace (Neg - Trace); Urine Bilirubin Negative (Negative); Urine Character Clear (Clear); Urine Color Yellow; Urine Glucose Negative (Negative); Urine Ketone Negative (Negative); Urine Leukocyte Negative (Negative); Urine Nitrite Negative (Negative); Urine Occult Blood Negative (Negative); Urine Urobilinogen Negative (Neg - 1+)
[2024-10-23 09:11] LABS: % Basophils 0.6 % (0-2); % Eosinophils 2.7 % (0-6); % Immature Granulocytes 0.4 % (0-0.5); % Lymphocytes 15.4 % (20.5-51.1); % Monocytes 8.8 % (1.7-9.3); % Neutrophils 72.1 % (42.2-75.2); Absolute Eosinophils 0.1 10^3/uL (0-0.7); Absolute Lymphocytes 0.7 10^3/uL (1.2-3.4); Absolute Monocytes 0.4 10^3/uL (0.1-0.6); Absolute Neutrophils 3.5 10^3/uL (1.4-6.5); Hematocrit 36.3 % (39.0-52.0); Hemoglobin 12.3 g/dL (13.0-18.0); Mean Corp Hgb Conc. 33.9 g/dL (33.0-37.0); Mean Corpuscular Hgb 31.1 pg (27.0-31.0); Mean Corpuscular Volume 91.9 fL (80.0-94.0); Mean Platelet Volume 9.8 fL (7.4-10.4); Nucleated Red Blood Cells % 0 % (-); Platelet Count 153 10^3/uL (130-400); Red Blood Cell Count 3.95 10^6/uL (4.70-6.10); White Blood Cell Count 4.8 10^3/uL (4.8-10.8)
[2024-10-23 09:15] LABS: APTT 34.1 Sec (23.4-35.0); INR 1.41; PT 17.5 Sec (11.4-14.6)
[2024-10-23 09:16] LABS: ALT (SGPT) 26 U/L (0-50); AST (SGOT) 36 U/L (17-59); Albumin 4.1 g/dl (3.5-5.0); Alkaline Phosphatase 67 U/L (38-126); Blood Urea Nitrogen 30 mg/dl (9-20); Calcium 9.3 mg/dl (8.4-10.2); Carbon Dioxide 27 mmol/L (22-30); Chloride 106 mmol/L (98-107); Direct Bilirubin 0.1 mg/dl (0.0-0.4); Estimated Creatinine Clearance 34 ml/min; Glucose 95 mg/dl (70-99); Potassium 5.1 mmol/L (3.5-5.1); Sodium 142 mmol/L (135-145); Total Bilirubin 0.7 mg/dl (0.2-1.3); Total Protein 6.7 g/dl (6.3-8.2)
[2024-10-23 09:25] LABS: NT-proBNP 1110 pg/ml
--- NOTE | 2024-10-23 09:47 | HPS.HSE ---
Family Physician
-
Family Physician: OTF Frederick
Chief Complaint
-
PRUITT
History of Present Illness
Mr. Medina is a very pleasant 84 yom that presents with symptomatic aortic stenosis associated with PRUITT and decrease in exercise tolerance. Echocardiogram from 08/17/2024 is notable for EF 50-55%, AV P/M 45/23, DANA 0.8, DI 0.2, no AI, MAC with mild
Discussed the pathophysiology and treatment options of including SAVR and TAVR. Patient was admitted on 09/26/2024 with and incidental finding of PE on CT scan, he was started on 5 mg Eliquis BID. The patient was evaluated by the heart team
and recommended for TF TAVR utilizing a 29mm S3 with Jovita Gallego and Erica.
Evaluated patient in preadmission testing and confirmed medication list. Mr. Medina's last dose Eliquis will be Tuesday (10/29) and he will continue 81 mg aspirin daily including the morning of TAVR. He will arrive to the [facility] at 0530. Informed patient that he will get a call from the heart team on Tuesday (10/31) to confirm time and location of arrival. Mr. Medina verbalized understanding of the risks of the procedure as discussed with Dr. Gallego
in consult. Allowed for and answered questions.
Medical History
Past Medical History
Past Medical History: Reports CAD, Valvular Disease (Aortic stenosis) and Other (PE, mixed hyperlipidemia, DJD, GERD, RA, shoulder impingement syndrome, shingles, (R) shoulder supraspinatus tear)
Past Surgical History: Reports Cardiac (stent to LAD in 2006) and Orthopedic (Cervical surgery, 3 lumbar surgeries, (R) shoulder arthroscopy, subacromial decompression, distal clavicle excision, rotator cuff repair)
Additional Past Surgical History:
Cataract extractions, sinus surgery
Social History
Tobacco: Former Smoker
Alcohol: Occasional
Drug: None
Personal:
Living: Alone
Employment: Retired (construction )
Family History
Family History: CAD and Cancer
Allergies / Home Medications
Allergies reflects when Allergies were last updated in [employer].
NKDA
Home Medications with [facility]
amLODIPine Besylate 2.5 MG Tablet 1 tablet Orally Once a day
Aspirin 81(Aspirin) 81 MG Tablet Chewable 1 tablet Orally Once a day
Atorvastatin Calcium 20 MG Tablet 1 tablet Orally Once a day
Gabapentin 300 MG Capsule 1 capsule Orally Twice a Day As needed
Glucosamine Chond Cmp Advanced([facility]) - Tablet as directed Orally , Notes to Pharmacist: 1 cap BID
Hydroxychloroquine Sulfate 200 MG Tablet 2 tablets Orally Once a Day
Multivitamin
Eliquis 5 mg BID
Allergy/Medication List:
NKDA
Review of Systems
-
History Source: Patient
A 12 point ROS was completed and negative except as noted: Yes
Constitutional: Reports Fatigue
Respiratory: Reports Trouble Breathing
Physical Exam
Physical Exam
General: Well Developed, Well Nourished, No Apparent Distress and Comfortable
HEENT: NormoCephalic
Respiratory: Clear
Cardiac: Regular Rhythm and Murmur (IV/ ADIS)
Breast: Deferred by me
GI: Soft, Non Tender and Non Distended
Rectal: Deferred by Provider
Genito-urinary: Deferred by me
Musculoskeletal: Edema, Left Lower Extremity (trace) and Edema, Right Lower Extremity (Trace)
Skin: Warm, Dry and Rash
Neuro: Awake, Alert, Oriented and AO x 3
Psych: Calm
Laboratory Results
-
10/23/24 08:41
10/23/24 08:41
Laboratory Results
PT 17.5 Sec (11.4-14.6) H 10/23/24 08:41
INR 1.41 10/23/24 08:41
APTT 34.1 Sec (23.4-35.0) 10/23/24 08:41
Total Bilirubin 0.7 mg/dl (0.2-1.3) 10/23/24 08:41
AST 36 U/L (17-59) 10/23/24 08:41
ALT 26 U/L (0-50) 10/23/24 08:41
Alkaline Phosphatase 67 U/L (38-126) 10/23/24 08:41
Data Reviewed
-
CT Scan: Report Reviewed by me and Discussed with Physician (Reviewed TAVR CT scan with the heart team)
Medical Tests (Nuc Med, Echo, EKG etc): Report Reviewed by me and Discussed with Physician (Reviewed echocardiogram and cardiac catheterization with the heart team)
Lab Data: Labs Reviewed by me
Old Records: Reviewed (Dr. Gallego's office note)
Impression/Plan
-
IMPRESSION/PLAN:
Aortic Stenosis
(R) TF TAVR planned with Drs. Maldonado and Julián utilizing a 29 mm S3
Hold Eliquis x 48 before TAVR, Continue aspirin including morning of TAVR, resume Eliquis post TAVR
POD#1/#30 Echocardiogram
Cardiac rehab consult.
--- NOTE | 2024-10-23 09:48 | CM ---
Met with Mr. Medina in [facility]. He states prior to admission he resides alone in a one story home with two steps to enter. He states prior to admission he was independent with ambulation and adls. He states he does not have any DME in the home. He
states he does not have any DME in the home. He states he has a prescription plan. He states he son resides nearby and he will stay with him for a day or so when he goes home. He resides in [facility] so the Transitional Care Nurse luda
not do a home visit. Will need to see if we can get a VNA Service with Pa doctors. The discharge plan is to return home with his son staying a few days with him and a VNA visit if an agency can be located.
We reviewed pre-op and post-op routines. We reviewed the shower instructions. He has the soap, written instructions and the TAVR Booklet. We also reviewed restrictions including lifting and driving restrictions. Also discussed a VNA Services if
we can find an agency that will accept a referral with a PA. doctor. He is agreeable to a home visit. The plan is for TAVR on October.
[2024-11-08] VITALS (14 sets, daily range): BP systolic 104–171; BP diastolic 55–87; BMI 25.1
--- NOTE | 2024-11-08 11:01 | W.CVOR.SURPR ---
CVOR Surgeon Immed Pre Op
-
I have examined this patient prior to performance of the scheduled procedure.
The patient's condition is unchanged from the time of the dictated/written History and
Physical and the patient is able to undergo the scheduled procedure.
TF TAVR
We discussed rescue status, he tells me he is ok with Shocks and CPR but Does NOT want sternotomy or CPB.
[2024-11-08] MEDS: ANCEF 10 IV (13:51)
[2024-11-08 14:45] LABS: ACT-LR - POC 371 Seconds (116-155)
--- NOTE | 2024-11-08 15:04 | W.PN.CT.SURG ---
CT Surgery Operative Note
-
OPERATIVE REPORT
Preoperative Diagnosis: Severe aortic valve stenosis, symptomatic
Postoperative Diagnosis: Same
Procedure(s) Performed: Right trans femoral TAVR with a 29 mm Moran TAVR valve
Date of Procedure: 11/08/2024
Comorbidities:
1. Severe aortic stenosis, symptomatic
2. CKD stage III
3. Nonischemic cardiomyopathy
4. History of pulm embolism
5. CAD
6. Hypertension
7. Hyperlipidemia
8. Rheumatoid arthritis
Cardiac Surgeon: Avi Carlton MD, MS
Production Support Developer: Annita Villalpando MD
Anesthesia: Conscious Sedation and Local Analgesia
EBL: 100cc
Products: none
Implant: 29mm Moran IGNACIA TAVR valve, SN: [id number]
Indication(s) for Procedures: 84-year-old male with symptomatic severe aortic stenosis. Multidisciplinary team discussion between interventional cardiology, general cardiology, and cardiac surgery call with consensus that the patient was
appropriate for transcatheter intervention. CT-TAVR protocol revealed acceptable anatomy for TAVR access and implantation.
Start time: 1413hrs
Deployment time: 1444hrs
End time: 1458hrs
Radiation Dose (mGy): 217.69
DAP (cm2.Gy): 24.2826
Fluoroscopy time (minutes): 10.0
Contrast volume (ml): 85
TAVR gradient (mmHg): 1-2mmHg
Protamine Dose: 30mg
Final Valve Positionin/10
Findings: Preoperative LVEF was 50% and was 60% following TAVR without inotropic support. Function was overall normal without regional wall motion abnormalities or dyskinesia. The aortic valve was well seated without detectable PVL and mean gradient
across the new valve was 1-2mmHg. After deployment of valve, there is a short period which he was junctional and slow and required pacing at 80 bpm. He then regained his capitan grande band rhythm with improvement in hemodynamics. The pacing wire was removed.
There was successful placement of 29mm TAVR valve without acute complications.
Access:
1. Device -right common femoral artery, perclose x 2
2. Pigtail -left common femoral artery [+ 6Fr angioseal]
3. Transvenous Pacer -left common femoral vein
Description of Procedure: The patient was taken to the mushroom laborer. Their identity and procedure to be performed were verified and they were positioned supine on the mushroom laborer table. Induction via conscious sedation. The patient was then prepped and
draped from chin to thigh in a sterile fashion. A preoperative time-out was performed with all members of the team present. Arterial and venous access was performed using fluoroscopy and ultrasound guidance with micropuncture and Seldinger
technique. Two perclose devices were used on the device side followed by access to the aorta with a stiff wire to facilitate E-sheath placement after dilating with a 16 Nigerien dilator. Heparin was given. A stiff straight wire and AL-1 catheter was
used to cross the aortic valve. An LVEDP was measured here. The stiff wire was exchanged for an extra stiff coiled tip wire. The valve was prepped and mounted on to the device carrier. An ACT of >250 was achieved. We verified x 3 that the valve was
mounted in the correct orientation with the skirt of the valve directed toward the tip of the device carrier. We advanced the device into the descending thoracic aorta where the valve was them mounted onto the balloon under fluoroscopy. The device
was flexed and advanced over the arch into the root and positioned across the aortic valve. Contrast fluoroscopy was used to visualize the prosthesis across the valve and to guide positioning. A pigtail catheter in the RCC as used as a guide. We
aimed to have the bottom of the device marker at the annular hinge point. The device sheath was pulled back. We performed a quick pre-deployment time out. The pacer was turned on and had capture. Blood pressure fell accordingly, angiography was done
to verify the intended final placement and the valve was deployed with 5 seconds of rapid pacing to nominal volume. The balloon was deflated and the pacer was turned off. We had recovery of vitals. The device carrier was unflexed and positioned back
in the descending thoracic aorta. A transthoracic echocardiogram was performed. The device was removed from the E-Sheath maintaining wire access followed by removal of the E-sheath as we cinched down the perclose devices. There was acceptable
hemostasis. The pigtail was withdrawn into the descending/abdominal and completion aortogram with runoff run-off angiography was performed. There was no stenosis or dissection of bilateral iliofemoral systems. There was acceptable hemostasis of
bilateral groins and manual pressure was held following wire removal. Low dose protamine was administered after checking another ACT.
All instrument, sponge, and needle counts were confirmed to be correct x 2 at the end of the operation. The patient was transferred to the cardiac intensive care unit in stable condition.
I, Dr. Avi Carlton, was present, scrubbed for, and performed all critical elements of this procedure.
Avi Carlton MD
Cardiothoracic Surgeon
[facility]
This operative dictation was created using the Friend[employer]ly dictation system. Please excuse any grammatical, typographical, or 'sound alike' errors
--- NOTE | 2024-11-08 15:33 | ITS.CL.TAVR ---
[facility] - TAVR Report
TAVR PRocedure
Procedure Report:
TRANSCATHETER AORTIC VALVE REPLACEMENT
Date of Procedure: November 08, 2024
Referring: Dany Vásquez MD
Operators: Drs. Annita Villalpando and Avi Carlton
PROCEDURE PERFORMED:
1. Successful placement of 29 mm Moran Araceli S3 aortic valve via right common femoral approach.
PREPROCEDURE NYHA CLASS: II
DESCRIPTION OF PROCEDURE: The patient was referred for assessment of severe symptomatic aortic stenosis and following a comprehensive evaluation it was felt that transcatheter aortic valve replacement (TAVR) would be the most appropriate treatment.
Informed consent was obtained prior to the procedure. A 'time-out' was called and the procedural plan was verbally confirmed by anesthesia, surgery, perfusion, and cathead operator staff.
Arterial and venous access site were obtained in the left common femoral artery and vein using ultrasound guidance and micropuncture technique. 6 Fr. sheaths were inserted.
A 5 Fr. transvenous pacing wire was advanced to the right ventricle where excellent pacing thresholds were obtained.
A 5 Fr. pigtail catheter was then advanced to the proximal ascending aorta / right aortic cusp where angiography was performed in multiple angles to define the co-planar angle that was most appropriate valve deployment (OSMANI 6/ CAU 10)
Ultrasound guidance was then used to obtain arterial access in the right common femoral artery and a 6 Fr. sheath was inserted. Angiography was performed and the arteriotomy site appeared appropriate for preclosure with two Perclose devices. An 8
Fr sheath was then inserted back into the common femoral artery over a J-tipped guidewire. An AL1 catheter was positioned in the proximal descending aorta. An Extra Stiff 0.035' J-tip wire was inserted to provide extra-support to facilitate the
Moran eSheath delivery. The 16 Fr. Moran eSheath was advanced in the descending thoracic aorta after dilating the area using the Moran dilator.
An AL1 catheter was advanced through the Moran eSheath over a 0.035' J-tip guide wire. The AL1 catheter was positioned just above the aortic valve. A 0.035' Straight tip wire probed the aortic valve and crossed the stenotic leaflets. The AL1
was then advanced to the mid left ventricle with invasive LV end-diastolic pressure was normal at 14 mmHg. An Amplatz Extra-stiff wire with a generous curved tip was then positioned in the left ventricular apex. A 29 mm Moran Araceli S3 valve was
brought to the table and the orientation of the valve on the balloon delivery system was confirmed by all operators. The Araceli S3 valve was advanced through the eSheath and into the proximal descending thoracic aorta. The Araceli S3 valve was
centered on the delivery balloon and the entire system was retroflexed as it crossed the aortic arch. The Araceli S3 delivery system was then advanced across the stenotic valve and the 29 mm Araceli S3 valve was deployed during rapid pacing. The
valve deployment was uneventful. Transthoracic echocardiographic images post valve deployment revealed minimal aortic insufficiency with excellent position of the aortic prosthesis. Post TAVR mean transaortic gradient was noted to be 1 mmHg by TTE.
The Moran balloon and delivery system were then removed. The Moran sheath was removed and the Perclose knots were advanced to the arteriotomy site resulting in excellent hemostasis.
Fluoro Time: 10 min, Dose: 217.7 mGy, DAP : 24.3 Gy.cm2
CONCLUSIONS:
1. Severe symptomatic aortic stenosis. Successful deployment of a 29 mm Araceli S3 valve with minimal aortic insufficiency post procedure
2. Successful arteriotomy closure with 2 Perclose devices.
Copy to: Dany Vásquez MD
Annita Villalpando MD, [facility], [facility]
--- NOTE | 2024-11-08 15:53 | W.PN.UPDATE ---
Update Note
Progress Note Update
Reviewed Mr. Medina with the heart team in the preTAVR SDM meeting and confirmed a 29mm S3 via right TF access. Patient will resume Eliquis and aspirin post TAVR. His LVEDP 14 mmHg. #29mm S3 (serial# [id number]) successfully implanted via right
transfemoral access. Post implant MG 1mmHg.
--- NOTE | 2024-11-08 19:30 | PTCARENOTE ---
Pt received at 1635 post procedure. Pt awake, alert and oriented. Denies any pain or sob. Room air sat 97%. Bilateral groin sites WNL with no hematoma. Neuro checks WNL.
[2024-11-08] MEDS: ANCEF IV (19:39)
--- NOTE | 2024-11-08 20:00 | PTCARENOTE ---
Assumed care of the patient at 1900. Patient in the chair, watching TV, AOx4, no acute complaints. SR on the monitor with sinus arrhythmia, + pulses, no edema, heart tones audible. Lungs clear on RA. Good appetite, + BS, tried to have BM
unsuccessful. Continent of urine but c/o unusual frequency, urine clear yellow. B/L groin sites intact, soft, no hematoma or oozing noted. Neurovascular check WNL, patient has baseine neuropathy and reported no changes in typical sensation. 2.5 mg
Amlodipine ordered for hypertension. LAC INT present CDI. Call curran within reach, patient able to make needs known. Assessment ongoing.
[2024-11-08] MEDS: ANCEF 5 IV (20:13)
[2024-11-08] MEDS: AUGMENTIN 875 MG/125 MG 1 TABLET PO (20:13)
[2024-11-08] MEDS: NORVASC 2.5 MG PO (20:14)
[2024-11-08] MEDS: LIPITOR 20 MG PO (21:26)
[2024-11-08] MEDS: MILK OF MAGNESIA 30 ML PO (22:25)
[2024-11-09] VITALS (9 sets, daily range): BP systolic 106–151; BP diastolic 68–83; PULSE 73; O2SAT 94–95; BMI 25.2
--- NOTE | 2024-11-09 | PTCARENOTE ---
Assessment mostly unchanged. VSS, patient asked for Tylenol for headache, sleeping between care.
[2024-11-09] MEDS: TYLENOL 650 MG PO (01:13)
--- NOTE | 2024-11-09 03:23 | W.PN.CT ---
Today's Communication / Plan
-
-pod #1
-no issues overnight
-nsr 60s, PACs overnight. No edin or pauses
-new RBBB postop
-Echo today
-current meds (ASA, Lipitor, Plaquenil, Norvasc, Augmentin for URI). Will restart Eliquis (hx PE)
-encourage IS, OOB
Assessment / Plan
-
- Severe symptomatic aortic valve stenosis- s/p Right trans femoral TAVR with a 29 mm Moran TAVR valve on 11/08/24, pod #1
- LVEF was 50% preop and 60% following TAVR without inotropic support, no regional wma or dyskinesia. The aortic valve was well seated without detectable PVL and mean gradient across the new valve was 1-2mmHg.
- Acute postop RBBB
- CKD stage III (baseline Cr 1.4-1.6)
- Nonischemic cardiomyopathy
- History of recent PE - on Eliquis preop
- CAD
- Hypertension
- Hyperlipidemia
- Rheumatoid arthritis
Discussed patient care with: Nursing and Care Team
Subjective
-
Date of Service: November 09, 2024
Objective Data
-
PT 17.5 Sec (11.4-14.6) H 10/23/24 08:41
INR 1.41 10/23/24 08:41
APTT 34.1 Sec (23.4-35.0) 10/23/24 08:41
Vital Signs
Vital Signs
Temp Pulse Resp BP Pulse Ox
98.7 F 65 18 151/72 97
11/09/24 00:00 11/09/24 02:45 11/09/24 00:00 11/09/24 02:00 11/08/24 19:41
CT Intake/Output/Weight
11/08/24 11/08/2424
06:59 18:59 06:59
Intake Total 1700 / 1700
Output Total 200 / 620 420 / 620
Balance 1500 / 1080 -420 / 1080
SaO2: 97
Physical Exam
-
General: Awake and AOx3
Cardiovascular: Regular rate & rhythm and Murmur (12/03 soft @ rsb)
Respiratory: Clear
Incision: Other (groins are cdi, soft, nontender, no hematoma b/l)
Extremities: No Edema
Abdomen: soft, nontender, nondistended, + bowel sounds
Data Reviewed
-
Lab Results: Results Reviewed
Medications: Active Meds Reviewed
Chest X-Ray: Report Reviewed and Image Reviewed
ECG: Report Reviewed and Image Reviewed
--- NOTE | 2024-11-09 04:00 | PTCARENOTE ---
Patient unable to sleep after being awoken for assessments. Melatonin ordered, given. Patient resting in bed comfortably. Assessment of needs ongoing.
[2024-11-09] MEDS: MELATONIN 3 MG PO (04:03)
[2024-11-09 05:07] LABS: Hematocrit 32.1 % (39.0-52.0); Hemoglobin 10.6 g/dL (13.0-18.0); Mean Corpuscular Hgb 30.2 pg (27.0-31.0); Mean Corpuscular Volume 91.5 fL (80.0-94.0); Mean Platelet Volume 10.2 fL (7.4-10.4); Platelet Count 145 10^3/uL (130-400); Red Blood Cell Count 3.51 10^6/uL (4.70-6.10); Red Cell Dist. Width 12.2 % (11.5-14.5); White Blood Cell Count 6.1 10^3/uL (4.8-10.8)
[2024-11-09 05:31] LABS: Blood Urea Nitrogen 30 mg/dl (9-20); Calcium 8.3 mg/dl (8.4-10.2); Carbon Dioxide 25 mmol/L (22-30); Chloride 106 mmol/L (98-107); Estimated Creatinine Clearance 39 ml/min; Glucose 86 mg/dl (70-99); Potassium 4.7 mmol/L (3.5-5.1); Sodium 137 mmol/L (135-145); eGFR 48.95
[2024-11-09] MEDS: NORVASC 2.5 MG PO (08:43)
[2024-11-09] MEDS: ASPIR LOW (ENTERIC COATED) 81 MG PO (08:43)
[2024-11-09] MEDS: AUGMENTIN 875 MG/125 MG 1 TABLET PO (08:43)
[2024-11-09] MEDS: PLAQUENIL 400 MG PO (08:43)
[2024-11-09] MEDS: THERAGRAN 1 TABLET PO (08:43)
[2024-11-09 10:51] LABS: Hematocrit 33.7 % (39.0-52.0); Hemoglobin 11.3 g/dL (13.0-18.0); Mean Corp Hgb Conc. 33.5 g/dL (33.0-37.0); Mean Corpuscular Hgb 30.4 pg (27.0-31.0); Mean Corpuscular Volume 90.6 fL (80.0-94.0); Mean Platelet Volume 9.9 fL (7.4-10.4); Platelet Count 148 10^3/uL (130-400); Red Blood Cell Count 3.72 10^6/uL (4.70-6.10); Red Cell Dist. Width 12.3 % (11.5-14.5); White Blood Cell Count 7.2 10^3/uL (4.8-10.8)
--- NOTE | 2024-11-09 11:21 | W.PN.UPDATE ---
Update Note
Progress Note Update
Rhythm star heart monitor given to patient. Explained how to apply, charge and return at the end of the 14 day period. Allowed for and answered questions. Verbalized understanding.
--- NOTE | 2024-11-09 12:25 | PTCARENOTE ---
received patient this am in bed, monitor shows NSR with BBBC, VSS. assessed both groins right groin is tender to touch. left groin has scant amount of old blood on dsg. distal pulses weak bilaterally but palpable. patient will go for U/S of right
groin. CBC redrawn and sent to lab.
--- NOTE | 2024-11-09 13:34 | CM ---
Addendum entered by BE Mejias 11/09/24 15:23:
[facility] able to accept and will provide services beginning 11/10.
Plan is for home w/ [facility]
Original Note:
CM following for DC planning needs.
Met w/ patient at bedside. He is feeling well post operatively.
We reviewed DC plans, telephone call from [facility] v [facility]. Pt. would like to see how he fares today before making decision.
Issue may be that PCP is [place]based and some [facility] may need DC ordering MD. Referrals made to several home health agencies in [place], will await response regarding what may be an option.
Will follow.
--- NOTE | 2024-11-09 15:37 | W.PN.CARDCBS ---
Today's Communication / Plan
-
1. Patient is status post 29 mm Moran IGNACIA transfemoral TAVR via right common femoral artery, postop day 1
2. No acute events overnight. Remains stable on telemetry with no significant bradycardia or heart block. New right bundle branch block noted on EKG post TAVR.
3. Echocardiogram was reviewed with stable valve and no significant PVL. No pericardial effusion. Stable gradients post TAVR.
4. Continue home cardiac medications.
5. Groin ultrasound which stat given soft bruit appreciated on exam which is normal without evidence of pseudoaneurysm.
6. Plan to resume home Eliquis and stable for discharge home with plan for monitoring manager given new right bundle branch block.
Annita Villalpando MD, [facility], [facility]
Impression / Plan
-
Assessment / Plan
Outpatient Secret Code Expert: Dr. Stanislaw Vásquez
-Severe symptomatic aortic valve stenosis- s/p Right trans-femoral TAVR with a 29 mm Moran IGNACIA TAVR valve on 11/08/24, pod #1
-LVEF was 50% preop and 60% following TAVR without inotropic support, no regional wma or dyskinesia. The aortic valve was well seated without detectable PVL and mean gradient across the new valve was 1-2mmHg.
-ECG with new right bundle branch block but otherwise stable on telemetry.
-CKD stage III (baseline Cr 1.4-1.6): Creatinine stable on the morning labs at 1.4
- Nonischemic cardiomyopathy, recovered
- History of recent PE - on Eliquis preop, questionable given some motion artifact on CT however plan to complete anticoagulation therapy for 3 months total
- CAD
- Hypertension
- Hyperlipidemia
- Rheumatoid arthritis
Progress Note - Secret Code Expert
Subjective
Date of Service: November 09, 2024
Patient is doing well does not offer any significant complaints. He walked the [place] this morning with physical therapist without shortness of breath.
Objective
Labs:
11/09/24 10:39
11/09/24 04:20
Labs
Hgb 11.3 g/dL (13.0-18.0) L 11/09/24 10:39
Hct 33.7 % (39.0-52.0) L 11/09/24 10:39
Plt Count 148 10^3/uL (130-400) 11/09/24 10:39
PT 17.5 Sec (11.4-14.6) H 10/23/24 08:41
INR 1.41 10/23/24 08:41
APTT 34.1 Sec (23.4-35.0) 10/23/24 08:41
Sodium 137 mmol/L (135-145) 11/09/24 04:20
Potassium 4.7 mmol/L (3.5-5.1) 11/09/24 04:20
BUN 30 mg/dl (9-20) H 11/09/24 04:20
Creatinine 1.4 mg/dL (0.7-1.3) H 11/09/24 04:20
Glucose 86 mg/dl (70-99) 11/09/24 04:20
Vital Signs and I&O:
Vital Signs
Temp Pulse Resp BP Pulse Ox
98.1 F 76 16 118/68 97
11/09/24 15:23 11/09/24 15:23 11/09/24 15:23 11/09/24 15:23 11/09/24 15:23
Vital Signs
Temp Pulse Resp BP Pulse Ox
98.1 F 76 16 118/68 97
11/09/24 15:23 11/09/24 15:23 11/09/24 15:23 11/09/24 15:23 11/09/24 15:23
Intake & Output
11/07/24 11/08/24 11/09/24 11/10/24
06:59 06:59 06:59 06:59
Intake Total 1700 / 1700
Output Total 1020 / 1020
Balance 680 / 680
Physical Exam
Physical Exam
General: Awake and AOx3
Cardiovascular: Regular rate & rhythm and Murmur (12/03 soft @ rsb)
Respiratory: Clear
Incision: Other (groins are cdi, soft, no hematoma b/l, very soft bruit noted over the right common femoral arterial access site, very mildly tender to palpation.)
Extremities: No Edema
--- NOTE | 2024-11-09 15:47 | W.PN.ANS.POP ---
Anesthesia Post Operative
- Anesthesia Post Op Note
Vital Signs Stable-See Nursing Note: Yes
Airway Patent: Yes
Adequate Pain Control: Yes
Change in Mental Status: No
Current Postoperative Nausea & Vomiting: No
Anesthesia Complications: No
General Anesthetic Recall: No
Unplanned Admission: No
Post Op Hydration Adequate: Yes
--- NOTE | 2024-11-09 15:48 | PTCARENOTE ---
D/C instructions given to patient , verbalizes understanding. applied Star monitor and turned it on. D/C instructions faxed to VN by business unit leader. INT D/C'd, telemetry D/C'd, personal belongings packed and snet home with patient. waiting for sons
arrival.
--- NOTE | 2024-11-09 16:01 | PTCARENOTE ---
D/C to home via wc accompanied by staff.
== END 2024-11-09 15:57 | disposition home health service (06) | DRG 267 ==
LOC: IVU 10:35
PROVIDERS: Nurse Practitioner; ADMITTING PHYSICIAN Thoracic Surgery (Cardiothoracic Vascular Surgery); ATTENDING PHYSICIAN Thoracic Surgery (Cardiothoracic Vascular Surgery); CONSULT PHYSICIAN Internal Medicine Cardiovascular Disease; FAMILY PHYSICIAN Nurse Practitioner Family; REFERRING PHYSICIAN Internal Medicine Cardiovascular Disease
PROC: 02RF38Z Replacement of Aortic Valve with Zooplastic Tissue, Percutaneous Approach (ICD-10-PCS; 2024-11-08)
DX: I35.0 Nonrheumatic aortic (valve) stenosis (principal); Z00.6 Encounter for examination for normal comparison and control in clinical research program; I42.8 Other cardiomyopathies; I25.10 Atherosclerotic heart disease of native coronary artery without angina pectoris; E78.2 Mixed hyperlipidemia; K21.9 Gastro-esophageal reflux disease without esophagitis; M06.9 Rheumatoid arthritis, unspecified; N18.30 Chronic kidney disease, stage 3 unspecified; I12.9 Hypertensive chronic kidney disease with stage 1 through stage 4 chronic kidney disease, or unspecified chronic kidney disease; I45.10 Unspecified right bundle-branch block; Z79.01 Long term (current) use of anticoagulants; Z79.82 Long term (current) use of aspirin; Z79.899 Other long term (current) drug therapy; Z82.49 Family history of ischemic heart disease and other diseases of the circulatory system; Z86.711 Personal history of pulmonary embolism; Z87.891 Personal history of nicotine dependence; Z95.5 Presence of coronary angioplasty implant and graft
CPT/HCPCS: 93308; 33361; 36415; 71045; 71046; 80048; 80053; 81003; 82248; 83880; 85025; 85027; 85347; 85610; 85730; 86850; 86900; 86901; 86920; 87070; 87147; 93005; 93306; 93321; 93325; 93926; C1760; C1769; C1894; Q9967

== ENCOUNTER → 2024-11-29 12:52 | Outpatient (REF) | payer MEDICARE, SELFPAY | LOC: HWRCS 12:52 | PROVIDERS: ATTENDING PHYSICIAN Internal Medicine Interventional Cardiology; FAMILY PHYSICIAN Nurse Practitioner Family | DX: Z95.2 Presence of prosthetic heart valve (principal) | CPT/HCPCS: 93306 ==

== ENCOUNTER 2025-01-22 10:38 | Outpatient (RCR) | payer MEDICARE, SELFPAY | END 2025-01-22 23:59 | disposition home or self-care (01) | LOC: CRHB 10:38 | PROVIDERS: ATTENDING PHYSICIAN Internal Medicine Cardiovascular Disease; FAMILY PHYSICIAN Nurse Practitioner Family | DX: Z95.4 Presence of other heart-valve replacement (principal) | CPT/HCPCS: G0422; G0423 ==

== ENCOUNTER 2025-02-21 10:36 | Outpatient (RCR) | payer MEDICARE, SELFPAY | END 2025-02-21 23:59 | disposition home or self-care (01) | LOC: CRHB 10:36 | PROVIDERS: ATTENDING PHYSICIAN Internal Medicine Cardiovascular Disease; FAMILY PHYSICIAN Nurse Practitioner Family | DX: I25.10 Atherosclerotic heart disease of native coronary artery without angina pectoris (principal); Z95.4 Presence of other heart-valve replacement | CPT/HCPCS: G0422; G0423 ==

== ENCOUNTER → 2025-03-14 12:35 | Outpatient (REF) | payer MEDICARE, SELFPAY ==
[2025-03-14 13:27] LABS: % Basophils 0.5 % (0-2); % Eosinophils 1.6 % (0-6); % Immature Granulocytes 0.2 % (0-0.5); % Lymphocytes 21.2 % (20.5-51.1); % Neutrophils 67.5 % (42.2-75.2); Absolute Eosinophils 0.1 10^3/uL (0-0.7); Absolute Lymphocytes 1.3 10^3/uL (1.2-3.4); Absolute Monocytes 0.6 10^3/uL (0.1-0.6); Absolute Neutrophils 4.1 10^3/uL (1.4-6.5); Hematocrit 37.1 % (39.0-52.0); Hemoglobin 12.2 g/dL (13.0-18.0); Mean Corp Hgb Conc. 32.9 g/dL (33.0-37.0); Mean Corpuscular Hgb 29.6 pg (27.0-31.0); Mean Platelet Volume 10.4 fL (7.4-10.4); Nucleated Red Blood Cells % 0 % (-); Platelet Count 152 10^3/uL (130-400); Red Blood Cell Count 4.12 10^6/uL (4.70-6.10); Red Cell Dist. Width 13.3 % (11.5-14.5); White Blood Cell Count 6.1 10^3/uL (4.8-10.8)
[2025-03-14 13:42] LABS: Erythrocyte Sed Rate 17 mm/hour (0-20)
[2025-03-14 14:33] LABS: ALT (SGPT) 26 U/L (0-50); AST (SGOT) 36 U/L (17-59); Albumin 4.3 g/dl (3.5-5.0); Alkaline Phosphatase 91 U/L (38-126); Blood Urea Nitrogen 32 mg/dl (9-20); Calcium 9.3 mg/dl (8.4-10.2); Carbon Dioxide 23 mmol/L (22-30); Chloride 108 mmol/L (98-107); Glucose 85 mg/dl (70-99); Sodium 141 mmol/L (135-145); Total Bilirubin 0.7 mg/dl (0.2-1.3); eGFR 45.06
== END ==
LOC: REG 12:35
PROVIDERS: ATTENDING PHYSICIAN Internal Medicine Rheumatology
DX: M06.09 Rheumatoid arthritis without rheumatoid factor, multiple sites (principal); Z79.899 Other long term (current) drug therapy; I25.10 Atherosclerotic heart disease of native coronary artery without angina pectoris
CPT/HCPCS: 36415; 80053; 85025; 85652; 86140

== ENCOUNTER 2025-03-26 13:23 | Outpatient (RCR) | payer MEDICARE, SELFPAY | END 2025-03-26 23:59 | disposition home or self-care (01) | LOC: CRHB 13:23 | PROVIDERS: ATTENDING PHYSICIAN Internal Medicine Cardiovascular Disease; FAMILY PHYSICIAN Nurse Practitioner Family | DX: I25.10 Atherosclerotic heart disease of native coronary artery without angina pectoris (principal); Z95.4 Presence of other heart-valve replacement | CPT/HCPCS: 36415; 80053; 85025; 85652; 86140; 93797; 93798; G0422; G0423 ==

== ENCOUNTER 2025-04-25 10:35 | Outpatient (RCR) | payer MEDICARE, SELFPAY | END 2025-04-25 23:59 | disposition home or self-care (01) | LOC: CRHB 10:35 | PROVIDERS: ATTENDING PHYSICIAN Internal Medicine Cardiovascular Disease; FAMILY PHYSICIAN Nurse Practitioner Family | DX: I25.10 Atherosclerotic heart disease of native coronary artery without angina pectoris (principal); Z95.4 Presence of other heart-valve replacement | CPT/HCPCS: 36415; 80053; 80061; 85025; 85652; 86140; 86200; 86430; G0422; G0423 ==

== ENCOUNTER 2025-05-07 11:03 | Outpatient (RCR) | payer MEDICARE, SELFPAY | END 2025-05-13 10:41 | disposition home or self-care (01) | LOC: CRHB 11:03 | PROVIDERS: ATTENDING PHYSICIAN Internal Medicine Cardiovascular Disease; FAMILY PHYSICIAN Nurse Practitioner Family | DX: Z95.3 Presence of xenogenic heart valve (principal); I25.10 Atherosclerotic heart disease of native coronary artery without angina pectoris; E78.2 Mixed hyperlipidemia | CPT/HCPCS: G0422; G0423 ==

== ENCOUNTER → 2025-10-11 14:05 | Outpatient (REF) | payer MEDICARE, SELFPAY | LOC: HWRCS 14:05 | PROVIDERS: ATTENDING PHYSICIAN Internal Medicine Cardiovascular Disease; FAMILY PHYSICIAN Internal Medicine | DX: I35.0 Nonrheumatic aortic (valve) stenosis (principal) | CPT/HCPCS: 93306 ==